=== PATIENT | female | born 1930 | race Caucasian/White ===

== ENCOUNTER 2016-10-26 07:57 | Inpatient (IN) | payer MEDICARE, OTHER ==
[~2016-10-26] VITALS: Ht 157.5 cm; Wt 72.0 kg
[2016-10-26] VITALS (27 sets, daily range): BP systolic 98–158; BP diastolic 47–71; PULSE 55–78; RESP 17–26; TEMP 98.7; Ht 157.5 cm; Wt 72.0 kg
[~2016-10-26 07:57] MED LIST: ACETAMINOPHEN; AMLO1TAB; ASPI-727; AZIL1TAB2 PO; COLC0.6T6 PO; DIGO0.25 PO; FER325 PO; GLIM4TAB PO; METF500T4 PO; METO-53; PANT40TA4; RIVA20TA PO; SMV40T; SMV40T PO; [UNRECOGNIZED DRUG - OTHER] PO; [UNRECOGNIZED DRUG - REMARK]; colcrys; vit d
[2016-10-26] MEDS ORDERED: SOD CHLORIDE 0.9% 1,000 ML IV STA (08:08)
[2016-10-26] MEDS ORDERED: IPRATROPIUM (NEB) 0.5 MG/2.5 ML AMP INH STA (08:12)
[2016-10-26] MEDS ORDERED: LEVALBUTEROL (NEB) 1.25 MG/0.5 ML AMP INH STA (08:12)
--- NOTE | 2016-10-26 08:20 | ERA ---
ER Documentation Chief Complaint Date/Time DATE: 10/26/16 TIME: 08:16 Chief Complaint BIB RA ALOC PT NON VERBAL HPI This is an 85-year-old female that was brought into the emergency department by EMS after her caregiver phoned 911. Story was limited as the caregiver did not speak Moh[place]. The patient is mumbling incomprehensible sounds and does not provide any history. EMS indicated that the patient appeared to be lying in her bed, diaphoretic, and respiratory distress. There is no signs of trauma or drug paraphernalia. The patient is a known diabetic and her blood glucose was normal according to EMS. The patient appeared to have some difficulty in breathing according to EMS but did not require supplemental oxygen in route to [facility]. The daughter had arrived shortly after the patient's arrival and indicated that the patient has a history of [id number] diabetes mellitus as well a triple bypass performed in 1999. The patient also has a cardiac stent that was placed in May 2015 and the RCA performed by Dr. Calabrese. The the daughter also indicates the patient speaks Singaporean and does not have a history of dementia. She is able to ambulate with a walker. She indicates that over the past several days the patient has not had any complaints such as chest pain shortness of breath or difficulty in breathing she also indicates she has not had a productive or nonproductive cough. The daughter also indicates she has not had a recent fever or hospitalization ROS All systems reviewed and are negative except as per history of present illness. Medications Home Meds Reported Medications Ergocalciferol (Vitamin D2) (VITAMIN D2) 50,000 Unit Capsule, 73088 UNIT PO WEEKLY, CAP 10/26/16 Metoprolol Tartrate* (Lopressor*) 50 Mg Tab, 50 MG PO BID, #60 TAB 10/26/16 Glimepiride* (Glimepiride*) 4 Mg Tablet, 4 MG PO BID WITH MEALS, TAB 10/26/16 Docusate Sodium* (Colace*) 250 Mg Capsule, 250 MG PO BID, #60 CAP 10/26/16 Sennosides* (Senna Lax*) 8.6 Mg Tablet, 1 TAB PO DAILY, TAB 10/26/16 Digoxin* (Digox*) 125 Mcg Tablet, 0.125 MG PO DAILY, TAB 10/26/16 Memantine* (Namenda* XR) 28 Mg Cap.spr.24, 28 MG PO DAILY, #30 TAB 10/26/16 Metformin* (Glucophage*) 500 Mg Tab, 500 MG PO DAILY, #30 TAB 10/26/16 Icosapent Ethyl (VASCEPA) 1 Gm Capsule, 1 GM PO BID, CAP 10/26/16 Acetaminophen* (Acephen*) 650 Mg Supp, 650 MG SC DAILY Y for PAIN AND OR ELEVATED TEMP, SUPP 10/26/16 Clopidogrel Bisulfate (Clopidogrel) 75 Mg Tablet, 75 MG PO DAILY, #30 TAB 10/26/16 Aspirin* (Aspirin* Chew) 81 Mg Tab.chew, 81 MG PO DAILY, TAB.CHEW 10/26/16 Colchicine* (Colcrys*) 0.6 Mg Tablet, 0.6 MG PO BID, TAB 10/26/16 Pantoprazole* (Pantoprazole*) 40 Mg Tablet.dr, 40 MG PO DAILY, TAB 10/26/16 Amlodipine Besylate* (Norvasc*) 5 Mg Tablet, 5 MG PO DAILY, TAB 10/26/16 Colchicine* (Colcrys*) 0.6 Mg Tablet, 0.6 MG PO DAILY 08/30/13 Azilsartan-Chlorthalidone (Edarbyclor) 1 Each Tablet, 1 EACH PO DAILY 08/30/13 Metformin* (Glucophage*) 500 Mg Tab, 500 MG PO BID 08/30/13 Rivaroxaban* (Xarelto*) 20 Mg Tablet, 20 MG PO DAILY 08/30/13 Ferrous Sulfate* (Ferrous Sulfate*) 325 Mg Tabec, 325 MG PO BID 08/30/13 [sulfametho] No Conflict Check, 160 MG PO BID 08/30/13 [vit d] No Conflict Check, 34310 UNIT each week 08/30/13 Glimepiride* (Glimepiride*) 4 Mg Tablet, 4 MG PO BID 08/30/13 Simvastatin (Simvastatin) 40 Mg Tablet, PO 02/20/13 Metoprolol (Lopressor) 50 Mg Tablet, bid, 0 Refills 02/20/13 Digoxin (Lanoxin) 0.25 Mg/5 Ml Solution, PO 02/20/13 [gas reliever] No Conflict Check 11/16/11 Pantoprazole* (Pantoprazole*) 40 Mg Tablet. 11/16/11 [colcrys] No Conflict Check 11/16/11 Aspirin (Adult Aspirin) 81 Mg Tab.chew 11/16/11 Simvastatin (Simvastatin) 40 Mg Tablet 11/16/11 [acetanminophen ext] No Conflict Check 11/16/11 Plskhitfua-Fvvfkwtwg-WGZE (Exforge HCT) 1 Each Tablet 11/16/11 Allergies Allergies: Coded Allergies: digoxin (Verified Allergy, Intermediate, 08/30/13) No Known Allergies (Verified Allergy, Unknown, 10/26/16) celecoxib (Verified Allergy, Unknown, 02/20/13) triamcinolone acetonide (Verified Allergy, Unknown, 02/20/13) Physical Exam Vitals Vital Signs Date Time Temp Pulse Resp B/P Pulse Ox O2 Delivery O2 Flow Rate FiO2 10/26/16 11:30 100.2 60 20 128/77 100 10/26/16 10:49 99.2 10/26/16 09:47 101.0 76 20 130/67 100 BIPAP 10/26/16 09:00 90 20 10/26/16 09:00 96 100 100 10/26/16 08:50 101.4 106 22 118/75 100 BIPAP 10/26/16 08:09 97.8 112 15 118/75 76 Physical Exam Constitutional:Well-developed. Well-nourished. In severe respiratory distress peer HEENT:Normocephalic. Atraumatic.Pupils were equal round reactive to light. Moist mucous membranes.No tonsillar exudates. Conjunctival pallor Neck: No nuchal rigidity. No lymphadenopathy. No posterior cervical spine tenderness or step-offs. Respiratory: Patient was using accessory muscles of respiration. Rhonchi heard bilaterally. No wheezing on end auscultation. Nonverbal. Cardiovascular: Regular rate regular rhythm.No murmurs. No rubs were appreciated.S1, S2 normal. Distal pulses are palpable 2+ bilaterally. GI: Abdomen was soft. Nontender. Non Distended. No pulsatile abdominal masses or bruits. No rebound. No guarding. Bowel sounds were present and normal. Muscle skeletal: Full range of motion of both the upper and lower extremities bilaterally.Normal muscle tone.No assymetrical calf tenderness or swelling. 1+ pitting edema the bilateral lower extremities. Skin: No petechia, no purpura. No lesions on the palms or the soles of the feet. No maculopapular rash. NEURO: Patient was alert and awake and was mumbling incomprehensible sounds. It is unknown what language the patient speaks but she would respond to Mohawk and follows simple verbal commands such as opening her mouth, raising her eyebrows, squeezing my fingers bilaterally.No facial droop. Gait not observed.Speech had regular rate and rhythm. No focal neurological deficits. Result Diagram: 10/26/16 0812 10/26/16 0812 Results 24 hrs Laboratory Tests Test 10/26/16 08:08 10/26/16 08:12 10/26/16 09:30 10/26/16 12:00 Arterial Blood HCO3 21.2mmol/L Arterial Blood Base Excess -3.7mmol/L Arterial Blood Oxygen Saturation 99.3mmHG [place] Test ACCEPTAB Arterial Blood Gas Puncture Site Left Radial Arterial Blood Carboxyhemoglobin 0.3% Arterial Blood Date Drawn 10/26/2016 12:16:15 PM Arterial Blood Methemoglobin 0.1% Arterial Blood pCO2 (Temp correct) 37.8mmhg Arterial Blood pH (Temp corrected) 7.367 Arterial Blood pO2 (Temp corrected) 306.5mmHG Blood Gas A-a O2 Differential 368.7mmHg Blood Gas Actual Respiration Rate 19 Blood Gas IPAP/EPAP Ratio 15/5 Blood Gas Modality MASK - BIPAP Blood Gas Notified Time 10/26/2016 12:22:45 PM Blood Gas Notified Whom MDA Blood Gas Pressure Support 10 Blood Gas Respiration Rate 16.0 Blood Gas Specimen Source Blood arterial Blood Gas Temperature 37.0C FiO2 100.0% Oxyhemoglobin Percent 98.9% Total Hemoglobin 11.9g/dl Activated Partial Thromboplast Time 25.8Sec Alanine Aminotransferase (ALT/SGPT) 22IU/L Albumin 4.1g/dl Albumin/Globulin Ratio 1.10 Alkaline Phosphatase 83IU/L Anion Gap 24 Aspartate Amino Transf (AST/SGOT) 23IU/L B-Type Natriuretic Peptide 3030PG/ML Band Neutrophils % 8.0% Basophils # 10^3/ul Basophils % % Blood Urea Nitrogen 21mg/dl Calcium Level 8.6mg/dl Carbon Dioxide Level 18mmol/L Chloride Level 103mmol/L Creatine Kinase 35IU/L Creatine Kinase Index 1.5 Creatinine 0.90mg/dl Creatinine Kinase MB (Mass) 0.51ng/ml Differential Comment MANUAL DIFF Direct Bilirubin 0.00mg/dl Eosinophils # 10^3/ul Eosinophils % % Free Thyroxine Index 2.09ug/ml Globulin 3.70g/dl Glucose Level 351mg/dl Hematocrit 34.9% Hemoglobin 11.8g/dl INR International Normalized Ratio 1.08 Indirect Bilirubin 0.3mg/dl Lymphocytes # 3.410^3/ul Lymphocytes % 12.0% Mean Corpuscular Hemoglobin 29.4pg Mean Corpuscular Hemoglobin Concent 33.6g/dl Mean Corpuscular Volume 87.4fl Mean Platelet Volume 8.0fl Monocytes # 0.910^3/ul Monocytes % 3.0% Neutrophils # 22.110^3/ul Neutrophils % 77.0% Nucleated Red Blood Cells # 10^3/ul Nucleated Red Blood Cells % /100WBC Platelet Count 53830^3/UL Potassium Level 4.7mmol/L Prothrombin Time 14.0Sec Prothrombin Time Ratio 1.1 Red Blood Count 4.0010^6/ul Red Cell Distribution Width 14.1% Sodium Level 140mmol/L Thyroxine (T4) 6.4ug/dl Total Bilirubin 0.3mg/dl Total Protein 7.8g/dl Triiodothyronine (T3) Uptake 32.7% Troponin I 0.033ng/ml White Blood Count 28.710^3/ul Urine Bacteria RARE Urine Bilirubin NEGATIVE Urine Clarity CLEAR Urine Color LT. YELLOW Urine Epithelial Cells RARE Urine Glucose 0.25%% Urine Hemoglobin TRACE Urine Ketones NEGATIVE Urine Leukocyte Esterase NEGATIVE Urine Microscopic RBC 0-2/HPF Urine Microscopic WBC 0-2/HPF Urine Nitrite NEGATIVE Urine Specific [place] 1.015 Urine Total Protein TRACE Urine Urobilinogen 0.2 E.U./dL Urine pH 6.0 Lactic Acid Level 2.6mmol/L Current Medications Medications (Trade) Dose Ordered Sig/Enrique Route PRN Reason Start Time Stop Time Status Last Admin Dose Admin Sodium Chloride (NS) 1,000 ml @ 1,000 mls/hr Q1H STAT IV 10/26/16 08:08 10/26/16 09:07 DC 10/26/16 08:35 Levalbuterol (Xopenex Neb) 2.5 mg ONCE STAT INH 10/26/16 08:12 10/26/16 08:14 DC 10/26/16 09:00 Ipratropium Osborne 1 mg 1 mg ONCE STAT INH 10/26/16 08:12 10/26/16 08:14 DC 10/26/16 09:00 Vancomycin HCl 250 ml @ 125 mls/hr ONCE STAT IVPB 10/26/16 08:45 10/26/16 10:44 DC 10/26/16 09:43 Piperacillin Sod/ Tazobactam Sod (Zosyn 3.375gm/ 100 ml (Pmx)) 100 ml @ 200 mls/hr ONCE STAT IVPB 10/26/16 08:45 10/26/16 09:14 DC 10/26/16 09:03 Acetaminophen (Tylenol Supp) 650 mg STK-MED ONCE SC 10/26/16 08:55 10/26/16 08:56 DC Acetaminophen (Tylenol Supp) 650 mg ONCE ONCE SC 10/26/16 09:30 10/26/16 09:37 DC 10/26/16 09:38 Acetaminophen (Tylenol Supp) 650 mg ONCE ONCE SC 10/26/16 11:00 10/26/16 11:01 DC Enoxaparin Sodium (Lovenox) 30 mg ONCE ONCE SC 10/26/16 12:30 10/26/16 12:31 UNV Acetaminophen (Tylenol Supp) 650 mg DAILY PRN SC PAIN AND OR ELEVATED TEMP 10/26/16 12:00 UNV Aspirin (Aspirin) 81 mg DAILY PO 10/27/16 09:00 UNV Clopidogrel Bisulfate (plaVIX) 75 mg DAILY PO 10/27/16 09:00 UNV Digoxin (Digoxin) 0.125 mg DAILY PO 10/27/16 09:00 UNV Docusate Sodium (Colace) 100 mg BID PRN PO CONSTIPATION 10/26/16 12:00 UNV Ferrous Sulfate (Ferrous Sulfate (Ec)) 325 mg BID PO 10/26/16 21:00 UNV Metoprolol Tartrate (Lopressor) 50 mg BID PO 10/26/16 21:00 UNV Rivaroxaban (Xarelto) 20 mg DAILY PO 10/27/16 09:00 UNV Senna (Senokot) 1 tab DAILY PO 10/27/16 09:00 UNV Ondansetron HCl (Zofran Inj) 4 mg Q6H PRN IV NAUSEA AND/OR VOMITING 10/26/16 12:00 UNV Albuterol (Proventil 0.5% (Neb)) 2.5 mg Q4H RESP THERAPY NEB 10/26/16 13:00 UNV Ipratropium [place] (Atrovent 0.02% (Neb)) 0.5 mg Q4H RESP THERAPY NEB 10/26/16 13:00 UNV Methylprednisolone Sodium Succinate (Solu-Medrol) 60 mg Q8 IV 10/26/16 14:00 UNV Nitroglycerin (Nitroglycerin (Sl Tab) 0.4 Mg) 1 tab Q5M PRN SL CHEST PAIN 10/26/16 12:00 UNV Acetaminophen (Tylenol Tab) 650 mg Q6H PRN PO PAIN LEVEL 1-3 OR FEVER 10/26/16 12:00 UNV Acetaminophen (Tylenol Supp) 650 mg Q4H PRN SC PAIN LEVEL 1-3 OR FEVER 10/26/16 12:00 UNV Morphine Sulfate (morphine) 1 mg Q4H PRN IV PAIN LEVEL 7-10 10/26/16 12:00 UNV Lorazepam (Ativan) 1 mg Q2H PRN IV ANXIETY 10/26/16 12:00 UNV Pantoprazole 40 mg 40 mg DAILY@06 IV 10/27/16 06:00 UNV Cefepime HCl (Maxipime 1gm/50 ml (Pmx)) 50 ml @ 100 mls/hr Q12 IVPB 10/26/16 21:00 UNV Vancomycin HCl (Vanco Iv Per Pharmacy) VANCOMYCIN PER PHARMACY PER PROTOCOL XX 10/26/16 12:00 UNV Insulin Aspart (Novolog Insulin Pen) NOVOLOG *MILD* ALGORITHM WITH MEALS BEDTIME SC 10/26/16 18:00 UNV Miscellaneous Information (* Miscellaneous Pharmacy Order) HYPOGLYCEMIA PROTOCOL w... ONCE ONCE XX 10/26/16 12:30 10/26/16 12:31 UNV Miscellaneous Information (* Miscellaneous Pharmacy Order) Discontinue Glyburide, Glipizide,... ONCE ONCE XX 10/26/16 12:30 10/26/16 12:31 UNV Miscellaneous Information (* Miscellaneous Pharmacy Order) Discontinue all previ... ONCE ONCE XX 10/26/16 12:30 10/26/16 12:31 UNV Insulin Glargine (Lantus) 10 unit QPM SC 10/26/16 21:00 UNV Procedures/MDM The patient presented to the emergency department with an acute and persistent change in their mental status. The differential diagnosis is diverse however reversible causes such as hypoglycemia, opiate overdose, thiamine deficiency were immediately considered. The patient was placed on a bus driver/monitor, continuous pulse oximetry and IV access was established. The patients airway was secure however hypoxic events such as anemia, shock, or severe pulmonary disease were all considered as etiologies in this patients presentation. Circulation assessed with good cap refill and did not require fluids or pressure support. Finger stick for rapid glucose determined to be normal. The patient appeared to be in significant respiratory distress. She has a previous sternotomy scar and it was concerned that the patient could be in congestive heart failure exacerbation. She was hypoxic satting at 79% on room air. Therefore the patient was placed on a nonrebreather and her pulse ox improved to 82% but given that she was still using accessory muscles of respiration with rhonchi she was placed on noninvasive mechanical ventilation with a BiPAP. She was given nebulizer treatments of Xopenex and albuterol as the patient was tachycardic. The patient was febrile and was given rectal acetaminophen. The patient was given a bedside swallow test which he had failed. The chest radiograph is reviewed by myself and showed significant pulmonary vascular congestion and given that the patient had evidence of sepsis I could not rule out an underlying infiltrate and the patient was treated for possible aspiration pneumonia. She was given vancomycin and Zosyn after blood cultures and urine culture was taken Patient's infectious symptoms have not stabilized and the patient is at risk of rapid decompensation. The patient will be admitted for careful hydration, antibiotic therapy, and infectious source control. Severe Sepsis Assessment: Infectious Source: Aspiration pneumonia End organ damage indicated by: Lactate > 2.0 mmol/L Acute Resp Failure (sat < 92% w/o oxygen) Severe Sepsis Managment: Blood Cultures X 2 before broad spectrum antibiotics initiated within 3 hours of recognition. 30 ml/kg NS bolus Not Completed to prevent fluid overload the patient had congestive heart failure Initial Lactate: 2.6 Repeat Lactate pending Critical Care: Time: 55 minutes Treatments/Evaluations: Close monitoring and treatment of unstable vital signs, cardiorespiratory, and neurologic status, while maintaining tight balance of fluid, respiratory, and cardiac interventions. 12 Lead EKG tracing ordered and reviewed by myself showed: Normal sinus rhythm of 99 bpm and no arrhythmia. SC interval normal. QRS duration normal. No ST segment elevation ST segment depression in the lateral leads V4 V5 V6. Patient will be admitted in serious condition to the hospitalist Dr. Oliveros. The patient did have criteria for severe sepsis given that she was febrile tachypneic hypoxic with leukocytosis and was in respiratory failure requiring mechanical ventilation. Departure Diagnosis: Primary Impression: CHF exacerbation Additional Impressions: Aspiration pneumonia Hyperglycemia without ketosis Severe sepsis Condition: Serious EAMON NUNEZ Oct 26, 2016 08:20
[2016-10-26 08:33] LABS: INR 1.08; PT RATIO 1.1
[2016-10-26 08:34] LABS: ALBUMIN 4.1 g/dl (3.3-4.9); PARTIAL THROMBOPLASTIN TIME 25.8 Sec (25.0-35.0)
[2016-10-26 08:35] LABS: POTASSIUM 4.7 mmol/L (3.5-5.1)
[2016-10-26 08:37] LABS: ALBUMIN/GLOBULIN RATIO 1.1; BILIRUBIN,INDIRECT 0.3 mg/dl (0-1.1); BILIRUBIN,TOTAL 0.3 mg/dl (0.2-1.3); CREATININE 0.9 mg/dl (0.44-1.00); TOTAL PROTEIN 7.8 g/dl (6.1-8.1)
[2016-10-26 08:38] LABS: CALCIUM 8.6 mg/dl (8.4-10.2)
[2016-10-26] MEDS ORDERED: VANCOMYCIN 1 GM (PMX) 250 ML IVPB STA (08:45)
[2016-10-26] MEDS ORDERED: PIPER-TAZO 3.375 GM IV (PMX) 100 ML IVPB STA (08:45)
[2016-10-26 08:47] LABS: CK-MB 0.51 ng/ml (0.0-2.4)
[2016-10-26 08:51] LABS: TROPONIN-I 0.033 ng/ml (0.00-0.12)
[2016-10-26 08:55] LABS: HEMATOCRIT 34.9 % (37.0-47.0); HEMOGLOBIN 11.8 g/dl (12.0-16.0); MEAN CORPUSCULAR HEMOGLOBIN 29.4 pg (29.0-33.0); MEAN CORPUSCULAR HGB CONC 33.6 g/dl (32.0-37.0); MEAN CORPUSCULAR VOLUME 87.4 fl (82.0-101.0); PLATELET COUNT 280 10^3/UL (140-440); RED CELL DISTRIBUTION WIDTH 14.1 % (11.5-14.5); T3 UPTAKE 32.7 % (23.5-40.5); UNCORRECTED WBC 28.7 10^3/ul (4.8-10.8); WHITE BLOOD COUNT 28.7 10^3/ul (4.8-10.8)
[2016-10-26] MEDS ORDERED: ACETAMINOPHEN 650 MG SUPP PR ONE ×3 (08:55→11:00)
[2016-10-26 08:58] LABS: CONDITION 1; LH ANALYZER COMMENTS 1; SUSPECT 1
--- NOTE | 2016-10-26 08:58 | RADRPT ---
PROCEDURE: XR Chest. CLINICAL INDICATION: Encephalopathy. Altered mental status. TECHNIQUE: Single frontal chest x-ray. COMPARISON: None available. FINDINGS: There has been prior median sternotomy. The cardiomediastinal silhouette is enlarged. There is diff use bilateral alveolar and interstitial disease with dense parenchymal consolidation throughout the right lung and in the left mid and lower lung zones. There is no pneumothorax. There are no acute o sseous abnormalities. There are deformities of multiple left ribs. IMPRESSION: 1. Cardiomegaly with diffuse bilateral alveolar and interstitial disease with dense superimposed pa renchymal opacification throughout the right lung of the left mid and lower lung zones. Differential considerations include severe pulmonary edema and multifocal pneumonia. RPTAT: GG .Celio Morales MD, Date Time Electronically viewed and signed by .Celio Morales MD, on 10/26/2016 08:58 .P/
[2016-10-26] MEDS ORDERED: AMLO5TAB4 PO (09:29)
[2016-10-26] MEDS ORDERED: PANT40TA4 PO (09:30)
[2016-10-26] MEDS ORDERED: COLC0.6T6 PO (09:31)
[2016-10-26] MEDS ORDERED: ASPI81TA3 PO (09:31)
[2016-10-26] MEDS ORDERED: TYL650R PR (09:32)
[2016-10-26] MEDS ORDERED: CLOP75TA27 PO (09:32)
[2016-10-26] MEDS ORDERED: METF500T4 PO (09:33)
[2016-10-26] MEDS ORDERED: ICOS1CAP PO (09:33)
[2016-10-26] MEDS ORDERED: DIGO125T19 PO (09:34)
[2016-10-26] MEDS ORDERED: MEMA28CA PO (09:34)
[2016-10-26] MEDS ORDERED: SENN-53 PO (09:35)
[2016-10-26] MEDS ORDERED: DOCU250C58 PO (09:36)
[2016-10-26] MEDS ORDERED: METO-429 PO (09:37)
[2016-10-26] MEDS ORDERED: GLIM4TAB PO (09:37)
[2016-10-26 09:38] LABS: LYMPHOCYTES # 3.4 10^3/ul (0.8-2.9); MONOCYTE # 0.9 10^3/ul (0.3-0.9); NEUTROPHIL # 22.1 10^3/ul (1.6-7.5)
[2016-10-26] MEDS ORDERED: ERGO500037 PO (09:38)
[2016-10-26 09:46] LABS: ADD UMIC YES; URINE BILIRUBIN (Dip) NEGATIVE (NEGATIVE); URINE BLOOD (Dip) TRACE (NEGATIVE); URINE COLOR LT. YELLOW (YELLOW); URINE KETONES (Dip) NEGATIVE (NEGATIVE); URINE LEUKOCYTE ESTERASE (Dip) NEGATIVE (NEGATIVE); URINE NITRITE (Dip) NEGATIVE (NEGATIVE); URINE TOTAL PROTEIN (Dip) TRACE (NEGATIVE); URINE UROBILINOGEN (Dip) 0.2 E.U./dL (0.1-1.0)
[2016-10-26 10:03] LABS: BACTERIA,URINE RARE; URINE RBCS 0-2 /HPF (0)
[2016-10-26] MEDS ORDERED: DOCUSATE SODIUM 250 MG CAP PO PRN (12:00)
[2016-10-26] MEDS ORDERED: ONDANSETRON 4 MG INJ IV PRN (12:00)
[2016-10-26] MEDS ORDERED: ACETAMINOPHEN 650 MG SUPP PR PRN ×2 (12:00)
[2016-10-26] MEDS ORDERED: NITROGLYCERIN (SL) 0.4 MG TAB SL PRN (12:00)
[2016-10-26] MEDS ORDERED: morphine 2 MG INJ IV PRN (12:00)
[2016-10-26] MEDS ORDERED: VANCOMYCIN IV PER PHARMACY XX SCH (12:00)
--- NOTE | 2016-10-26 12:17 | CONS ---
Date/Time of Note Date/Time of Note DATE: 10/26/16 TIME: 12:10 Assessment/Plan Assessment/Plan Additional Assessment/Plan Assessment and recommendation; next 1. Patient admitted with diffuse bilateral pneumonia I doubt there is any component of congestive heart failure. He does have significant leukocytosis. 2. History of coronary artery bypass surgery 16 years ago with negative troponin. Next 3. History of diabetes, hypertension, hyperlipidemia. 4. I did have a discussion of the family regarding CODE STATUS and according to the patient's daughter the patient did not want to be intubated therefore is a DNR. Continue current BiPAP settings, continue current broad-spectrum antibiotics. Obtain follow-up chest x-ray tomorrow morning. Lovenox for DVT prophylaxis. Also on Solu-Medrol and I would recommend continuation of the same. Prognosis is guarded. Consultation Date/Type/Reason Admit Date/Time Date of Consultation: Oct 26, 2016 Type of Consultation: pulmonary/ critical care Reason for Consultation Patient admitted to ER brought in by EMS with complaints of shortness of breath/ respiratory failure. The patient's daughter the patient was doing fine until early this morning when she she attended to her mother was found to be severely short of breath no history of any fever chills chest pain wheezing any nausea vomiting upon evaluation in ER chest x-ray was done which is showing diffuse bilateral infiltrates consistent with bilateral severe pneumonia and currently maintained on BiPAP according to her she is feeling better. Past Medical History Past medical history 1. History of coronary artery disease with coronary artery bypass surgery in 1999 according to the patient's daughter for bypasses were done next 2. Hypertension 3. Diabetes next 4. Hyperlipidemia 5. 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 6. According to the patient's daughter no history of any congestive heart failure/pneumonia/respiratory failure in the past. 7. History of 1. Medications; were reviewed. Social history no history of any smoking alcohol or drug abuse. Family history; she is a has 2 children. Occupational history; patient has been a housewife. Next Review of systems; limited review of systems will be obtained patient is on BiPAP however she sees her shortness of breath is improving but denies any chest pain nausea, vomiting, fever, chills. Has any sputum production, hemoptysis. Social History Smoking Status: Former smoker Exam/Review of Systems Vital Signs Vitals Vital Signs Date Time Temp Pulse Resp B/P Pulse Ox O2 Delivery O2 Flow Rate FiO2 10/26/16 10:49 99.2 10/26/16 09:47 76 20 130/67 100 BIPAP 10/26/16 09:00 100 Exam HEENT examination; supple neck, no JVD. Patient does not multiple carious teeth. Bilateral intraocular lens implants. No neck masses no thyromegaly. Currently on BiPAP. Chest examination; diminished breath sounds throughout the bilateral crackles. S1-S2 audible no murmurs regular rhythm. There is a well-healed sternal scar. Abdomen examination; soft, nondistended, no organomegaly. Bowel sounds are audible. Extremity examination; no peripheral edema. Pulses 1+ bilaterally. FINAL TOUCH UP PAINTER examination; patient is on BiPAP cranial nerves could not be completely evaluated however there is no obvious focal motor deficit. Results Result Diagram: 10/26/16 0812 10/26/16 0812 Results 24 hrs Laboratory Tests Test 10/26/16 08:12 10/26/16 09:30 Activated Partial Thromboplast Time 25.8 Alanine Aminotransferase (ALT/SGPT) 22 Albumin 4.1 Albumin/Globulin Ratio 1.10 Alkaline Phosphatase 83 Anion Gap 24 H Aspartate Amino Transf (AST/SGOT) 23 B-Type Natriuretic Peptide 3030 H Band Neutrophils % 8.0 H Basophils # Basophils % Blood Urea Nitrogen 21 H Calcium Level 8.6 Carbon Dioxide Level 18 L Chloride Level 103 Creatine Kinase 35 Creatine Kinase Index 1.5 Creatinine 0.90 Creatinine Kinase MB (Mass) 0.51 Differential Comment MANUAL DIFF Direct Bilirubin 0.00 Eosinophils # Eosinophils % Free Thyroxine Index 2.09 Globulin 3.70 H Glucose Level 351 H Hematocrit 34.9 L Hemoglobin 11.8 L INR International Normalized Ratio 1.08 Indirect Bilirubin 0.3 Lymphocytes # 3.4 H Lymphocytes % 12.0 L Mean Corpuscular Hemoglobin 29.4 Mean Corpuscular Hemoglobin Concent 33.6 Mean Corpuscular Volume 87.4 Mean Platelet Volume 8.0 Monocytes # 0.9 Monocytes % 3.0 Neutrophils # 22.1 H Neutrophils % 77.0 Nucleated Red Blood Cells # Nucleated Red Blood Cells % Platelet Count 280 Potassium Level 4.7 Prothrombin Time 14.0 Prothrombin Time Ratio 1.1 Red Blood Count 4.00 L Red Cell Distribution Width 14.1 Sodium Level 140 Thyroxine (T4) 6.4 Total Bilirubin 0.3 Total Protein 7.8 Triiodothyronine (T3) Uptake 32.7 Troponin I 0.033 White Blood Count 28.7 H Urine Bacteria RARE Urine Bilirubin NEGATIVE Urine Clarity CLEAR Urine Color LT. YELLOW Urine Epithelial Cells RARE Urine Glucose 0.25% H Urine Hemoglobin TRACE Urine Ketones NEGATIVE Urine Leukocyte Esterase NEGATIVE Urine Microscopic RBC 0-2 Urine Microscopic WBC 0-2 Urine Nitrite NEGATIVE Urine Specific [place] 1.015 Urine Total Protein TRACE Urine Urobilinogen 0.2 E.U./dL Urine pH 6.0 GHULAM CARRASCO Oct 26, 2016 12:17
[2016-10-26 12:22] LABS: AADO2 Arterial 368.7 mmHg (7.0-24.0); Allen Test ACCEPTAB; Arterial Base Excess -3.7 mmol/L (-3.0-3); Arterial COHb 0.3 % (0.0-3.0); Arterial Fraction of Oxyhgb 98.9 % (93.0-99.0); Arterial HCO3 21.2 mmol/L (22.0-26.0); Arterial MetHb 0.1 % (0.0-1.5); Arterial Total Hemglobin 11.9 g/dl (12.0-18.0); Blood Gas IEPAP 15/5; Blood Gas PS 10; MODE MASK - BIPAP
[2016-10-26] MEDS ORDERED: ENOXAPARIN 30 MG/0.3 ML SYG SC ONE (12:30)
[2016-10-26] MEDS ORDERED: GLUCAGON 1 MG INJ IM PRN (15:30)
[2016-10-26] MEDS ORDERED: GLUCOSE GEL 15 GRAM TUBE BUCCAL PRN (15:30)
[2016-10-26] MEDS ORDERED: GLUCOSE GEL 15 GRAM TUBE PO PRN ×2 (15:30)
[2016-10-26] MEDS ORDERED: DEXTROSE 50% 50 ML SYRINGE IV PRN ×2 (15:30)
[2016-10-26 15:37] LABS: CK-MB 33.7 ng/ml (0.0-2.4)
[2016-10-26 15:49] LABS: TROPONIN-I 24.4 ng/ml (0.00-0.12)
[2016-10-26] MEDS ORDERED: LIDOCAINE 1% (MDV) 20 ML INJ SC ONE (16:30)
[2016-10-26] MEDS ORDERED: HEPARIN 1000 UNITS/ML 10 ML INJ IV ONE (16:30)
[2016-10-26] MEDS ORDERED: HEPARIN 1000 UNITS/ML 10 ML INJ IV PRN (16:30)
[2016-10-26 17:01] LABS: BASOPHILS % 0.1 % (0.0-2.0); HEMATOCRIT 32.1 % (37.0-47.0); LYMPHOCYTES # 1.1 10^3/ul (0.8-2.9); LYMPHOCYTES % 4.6 % (15.0-51.0); MEAN CORPUSCULAR HEMOGLOBIN 29.8 pg (29.0-33.0); MEAN CORPUSCULAR HGB CONC 34.4 g/dl (32.0-37.0); MEAN CORPUSCULAR VOLUME 86.8 fl (82.0-101.0); MEAN PLATELET VOLUME 7.4 fl (7.4-10.4); MONOCYTES % 4.4 % (0.0-11.0); NEUTROPHIL # 20.8 10^3/ul (1.6-7.5); NEUTROPHILS % 90.9 % (39.0-77.0); PLATELET COUNT 197 10^3/UL (140-440); RED BLOOD COUNT 3.69 10^6/ul (4.20-5.40); RED CELL DISTRIBUTION WIDTH 13.8 % (11.5-14.5); UNCORRECTED WBC 22.9 10^3/ul (4.8-10.8); WHITE BLOOD COUNT 22.9 10^3/ul (4.8-10.8)
[2016-10-26 17:02] LABS: CONDITION 1; LH ANALYZER COMMENTS 1
[2016-10-26] MEDS: CLOPIDOGREL 75 MG TAB PO SCH (17:02)
[2016-10-26 17:03] LABS: INR 1.07; PROTIME 13.9 Sec (12.2-14.2); PT RATIO 1.1
[2016-10-26] MEDS: DIGOXIN 0.125 MG TAB PO SCH (17:03)
[2016-10-26 17:04] LABS: PARTIAL THROMBOPLASTIN TIME 28.1 Sec (25.0-35.0)
--- NOTE | 2016-10-26 17:43 | HP ---
DATE OF ADMISSION: 10/26/2016 CONSULTANTS: Costume Specialist. Stretcher Leveler Operator Helper. CHIEF COMPLAINT: Shortness of breath. HISTORY OF PRESENT ILLNESS: This is an 86-year-old female with past medical history of coronary art pamella disease status post quadruple bypass and also in 2016, patient had a left heart catheterization, status post PCI, hypertension, vitamin D deficient, diabetes mellitus, GERD, dyslipidemia, chronic constipation, anemia, arrhythmia, who resides at home and has 24-hour nurse, was found to have short ness of breath and was brought into the emergency room via EMS where she was found to be hypoxic wit h oxygen saturation of 76%. Patient was placed on BiPAP. The patient was also found to be febrile with temperature 100.4. WBC was 28.7. Chest x-ray showed multifocal pneumonia, bilateral alveolar and interstitial disease. Patient was started on normal saline, Zosyn, vancomycin, and Tylenol in t he course of the emergency room. Pulmonology and cardiology were consulted. As per patient's daugh ter, patient has had a history of coronary artery disease and bypass and PCI, and she also has valvu lar stenosis, which she has refused surgical intervention about a year ago. This morning, patient's first troponin was 0.033 and the second troponin was 24.40. Cardiology has been notified regarding this matter. The patient's lactic acid was found to be 2.6, glucose of 351. At this time, the pat ient continues to be on BiPAP. She is arousable. She is able to follow simple commands. PAST MEDICAL AND SURGICAL HISTORY: As above per HPI. MEDICATIONS: 1. Tylenol. 2. Amlodipine. 3. Aspirin. 4. . 5. Plavix. 6. Colchicine. 7. Digoxin. 8. Colace. 9. Vitamin D. 10. Ferrous sulfate. 11. Glyburide. 12. . 13. Namenda. 14. Glucophage. 15. Lopressor. 16. Protonix. 17. Xarelto. 18. Senna 19. Simvastatin. ALLERGIES: 1. Digoxin. 2. Celecoxib. 3. Triamcinolone. SOCIAL HISTORY: Negative x3 for smoking, alcohol, illicit drugs. Lives at home. She has a full ca retaker. FAMILY HISTORY: Noncontributory secondary to advanced age. REVIEW OF SYSTEMS: As above per HPI. Otherwise, 12 review of systems was found to be negative. PHYSICAL EXAMINATION: VITAL SIGNS: Temperature at this time 98.7, pulse 58, respirations 17, blood pressure 129/49, satur ation 100% on BiPAP. GENERAL APPEARANCE: The patient is lying in bed, not agitated, on BiPAP, using accessory muscle for breathing. EYES AND ENT: Conjunctivae and lids are normal. Pupils are normal. Extraocular normal. Hearing g rossly normal. Lips are normal. Oral mucosa is dry. NECK: Supple. Trachea is midline. No lymphadenopathy, no JVD. LUNGS: Decreased breath sounds bilateral lower lung field. Positive for crackles and rales. No wh eezing. CARDIOVASCULAR: Normal S1, S2. Positive murmur at the apex. Positive 1 edema bilateral lower extr emities. ABDOMEN: Soft, nontender, not distended. Bowel sounds present. EXTREMITIES: Upper and lower extremities within normal limits. Positive +1 edema. Full range of m otion. NEUROLOGIC: Patient is awake, alert. LABORATORY WORK AND IMAGING: WBC 28.7, pulse 11.8, hematocrit 34.9, platelets 280, bands 8. Sodium 140, potassium 4.7, chloride 103, bicarbonate 18, BUN 21, creatinine 0.90, glucose 351. Lactic aci d 2.6. Troponin 0.033 and 24.4. BNP 3000. EKG showed sinus rhythm with normal QRS, no ST segment elevation, ST segment depressions in lateral leads V4 to V6. ASSESSMENT AND PLAN: 1. Acute respiratory failure, needed BiPAP. Pulmonology has been consulted. Has been placed on So [place]any-Medrol, breathing treatment. 2. Non-ST myocardial infarction. Cardiology has been consulted. Continue aspirin and Plavix. Pat ient has been placed on heparin drip. At this time, the patient's daughter will decide regarding to proceed with left heart catheterization procedure. Waiting for cardiology. 3. History of coronary artery disease status post quadruple bypass. Continue medical management. 4. Essential hypertension, well controlled on medical management at this time. 5. SIRS secondary to multifocal pneumonia, on cefepime and vancomycin. 6. Diabetes mellitus on insulin sliding scale and Lantus. 7. Multifocal pneumonia, on cefepime and vancomycin. Pulmonology and ID has been consulted. 8. For deep venous thrombosis prophylaxis, the patient is on Xarelto. 9. At this time, the patient has been placed on heparin drip. 10. For gastrointestinal prophylaxis, on proton pump inhibitor. 11. We will continue to monitor patient closely. Further recommendations, management, and treatmen t course as per patient's daughter recommendation and wishes. Patient is DNR. Will continue to mon itor patient closely for further recommendations, management, and treatment as per clinical course. Total amount of time was spent for evaluation of patient and admission workup greater than 60 minute s. Dictated By: AXEL CHERRY MD PN/NTS Conf#: [id number] DID#: [id number]
--- NOTE | 2016-10-26 17:46 | RADRPT ---
PROCEDURE: Ultrasound guidance for placement of needle in left upper extremity vein. CLINICAL INDICATION: Venous access. TECHNIQUE: Limited sonography of the left upper extremity was performed. Ultrasound images were recorded and s tored in the patient's medical record. COMPARISON: None. FINDINGS: The ultrasound images demonstrate a patent left upper extremity vein. The PICC line was inserted by the PICC line nurse. IMPRESSION: 1. Ultrasound guidance for a needle placement in a left upper extremity vein. 2. The left upper extremity vein is patent. RPTAT: QQ .Rene Jacob MD, MD Date Time Electronically viewed and signed by .Rene Jacob MD, MD on 10/26/2016 17:46 .R/
--- NOTE | 2016-10-26 17:51 | RADRPT ---
PROCEDURE: XR Chest. CLINICAL INDICATION: Check PICC line position. TECHNIQUE: Single frontal view. COMPARISON: 08/30/2013. FINDINGS: There is a left arm PICC line with the tip in the lower superior vena cava. There is bilateral air space disease consistent with pulmonary edema or pneumonia with right worse than left. The heart is enlarged. There is calcification in the aorta consistent with atherosclerosis. There are sternal wires and mediastinal clips. There is no pleural effusion or pneumothorax. There are old healed left upper rib fractures. IMPRESSION: 1. Satisfactory position of left arm PICC line. 2. Pulmonary edema or pneumonia with right worse than left. 3. Cardiomegaly and atherosclerosis. 4. Previous median sternotomy. 5. Old healed left upper rib fractures. RPTAT: QQ .Rene Jacob MD, Date Time Electronically viewed and signed by .Rene Jacob MD, on 10/26/2016 17:50 .R/
[2016-10-26] MEDS ORDERED: RIVAROXABAN 20 MG TABLET PO SCH (18:00)
[2016-10-26] MEDS: METHYLPREDNISOLONE 125 MG INJ IV SCH ×2 (18:24→22:47)
[2016-10-26] MEDS: INSULIN ASPART [NOVOLOG] 3 ML PEN SC SCH ×2 (18:36→22:47)
[2016-10-26] MEDS: ALBUTEROL 0.5% (NEB) 2.5 MG/0.5 ML AMP NEB SCH ×3 (19:29→20:44)
[2016-10-26] MEDS: IPRATROPIUM (NEB) 0.5 MG/2.5 ML AMP NEB SCH ×2 (19:30→20:44)
[2016-10-26 19:52] LABS: CK-MB 28.2 ng/ml (0.0-2.4)
[2016-10-26 19:56] LABS: TROPONIN-I 28.8 ng/ml (0.00-0.12)
[2016-10-26] MEDS: HEPARIN 25000 UNITS/250 ML 250 ML IV SCH (20:20)
[2016-10-26] MEDS: INSULIN GLARGINE [LANtus] 3 ML PEN SC SCH (22:46)
[2016-10-26] MEDS: CEFEPIME 1GM/50 ML (PMX) 50 ML IVPB SCH (22:47)
[2016-10-26] MEDS: FERROUS SULFATE (EC) 325 MG TAB PO SCH (22:52)
[2016-10-26] MEDS: METOPROLOL 50 MG TAB PO SCH (22:53)
--- NOTE | 2016-10-26 23:23 | CONS ---
Date/Time of Note Date/Time of Note DATE: 10/26/16 TIME: 23:04 Assessment/Plan Assessment/Plan Chief Complaint/Hosp Course Assessment: NSTEMI Coronary artery disease - history of CABG, history of PCI in 2016 (details unknown) Acute on chronic diastolic heart failure Severe aortic stenosis - refused valve replacement in the past Acute hypoxic respiratory failure - off BiPAP, on face mask Bilateral pneumonia Possible paroxysmal atrial fibrillation - currently sinus rhythm Hypertension Dyslipidemia Diabetes mellitus Recommendations: -serial troponins, obtain transthoracic echocardiogram -continue heparin drip -continue aspirin 81mg and clopidogrel 75mg daily -continue metoprolol 50mg BID -atorvastatin 80mg daily -gentle diuresis - Lasix 20mg IV x 1 -will need to discuss goals of care with family, coronary angiography when patient is more stable if they are agreeable -antibiotics per primary team Critical care time: >35 minutes at bedside Problems: Consultation Date/Type/Reason Admit Date/Time Type of Consultation: Cardiology Reason for Consultation elevated troponin Referring Provider: AXEL CHERRY MD Hx of Present Illness The patient is an 86 year-old female who presented with shortness of breath. She was found to have a fever, leukocytosis, hypoxic respiratory failure, and chest x-ray findings consistent with pneumonia. She was initially placed in BiPAP, but is now on face mask. Her initial troponin was 0.033, but have trended up to 28. She is currently lethargic and unable to provide much meaningful history (hearing impairment and language are additional barriers). She has coronary artery and is status post coronary artery bypass graft surgery and coronary stenting in 2016 (details unknown). She also has severe aortic stenosis and had refused valve replacement in the past. She has a possible history of atrial fibrillation (on digoxin and Xarelto as an outpatient. Unable to obtain review of systems due to patient's mental status. Past Medical History Coronary artery disease - history of CABG, history of PCI in 2016 (details unknown) Severe aortic stenosis Chronic diastolic heart failure Possible paroxysmal atrial fibrillation Hypertension Dyslipidemia Diabetes mellitus Past Surgical History Past Surgical Hx: coronary bypass surgery Family History Significant Family History: other (noncontributory given advanced age) Social History Alcohol Use: none Smoking Status: Never smoker Drug Use: none Exam/Review of Systems Vital Signs Vitals Vital Signs Date Time Temp Pulse Resp B/P Pulse Ox O2 Delivery O2 Flow Rate FiO2 10/26/16 20:47 74 20 99 Simple Mask 10.0 10/26/16 18:30 154/54 10/26/16 17:30 98.0 10/26/16 17:00 50 Exam Constitutional: No distress Psych: confusion Head: atraumatic, normocephalic Eyes: nl conjunctiva, nl lids ENMT: nl external ears & nose, nl nasal mucosa & septum Neck: non-tender, supple Respiratory: crackles/rales, diminished breath sounds Cardiovascular: regular rate and rhythm, systolic murmur Gastrointestinal: non-tender, soft Musculoskeletal: nl extremities to inspection Extremities: edema, No clubbing, No cyanosis Neurological: No nl mental status, No nl speech Results Result Diagram: 10/26/16 1635 10/26/16 0812 Results 24 hrs Laboratory Tests Test 10/26/16 08:08 10/26/16 08:12 10/26/16 09:30 10/26/16 12:00 Arterial Blood HCO3 21.2 L Arterial Blood Base Excess -3.7 L Arterial Blood Oxygen Saturation 99.3 [place] Test ACCEPTAB Arterial Blood Gas Puncture Site Left Radial Arterial Blood Carboxyhemoglobin 0.3 Arterial Blood Date Drawn 10/26/2016 12:16:15 PM Arterial Blood Methemoglobin 0.1 Arterial Blood pCO2 (Temp correct) 37.8 Arterial Blood pH (Temp corrected) 7.367 Arterial Blood pO2 (Temp corrected) 306.5 H Blood Gas A-a O2 Differential 368.7 H Blood Gas Actual Respiration Rate 19 Blood Gas IPAP/EPAP Ratio 15/5 Blood Gas Modality MASK - BIPAP Blood Gas Notified Time 10/26/2016 12:22:45 PM Blood Gas Notified Whom MDA Blood Gas Pressure Support 10 Blood Gas Respiration Rate 16.0 Blood Gas Specimen Source Blood arterial Blood Gas Temperature 37.0 FiO2 100.0 Oxyhemoglobin Percent 98.9 Total Hemoglobin 11.9 L Activated Partial Thromboplast Time 25.8 Alanine Aminotransferase (ALT/SGPT) 22 Albumin 4.1 Albumin/Globulin Ratio 1.10 Alkaline Phosphatase 83 Anion Gap 24 H Aspartate Amino Transf (AST/SGOT) 23 B-Type Natriuretic Peptide 3030 H Band Neutrophils % 8.0 H Basophils # Basophils % Blood Urea Nitrogen 21 H Calcium Level 8.6 Carbon Dioxide Level 18 L Chloride Level 103 Creatine Kinase 35 Creatine Kinase Index 1.5 Creatinine 0.90 Creatinine Kinase MB (Mass) 0.51 Differential Comment MANUAL DIFF Direct Bilirubin 0.00 Eosinophils # Eosinophils % Free Thyroxine Index 2.09 Globulin 3.70 H Glucose Level 351 H Hematocrit 34.9 L Hemoglobin 11.8 L INR International Normalized Ratio 1.08 Indirect Bilirubin 0.3 Lymphocytes # 3.4 H Lymphocytes % 12.0 L Mean Corpuscular Hemoglobin 29.4 Mean Corpuscular Hemoglobin Concent 33.6 Mean Corpuscular Volume 87.4 Mean Platelet Volume 8.0 Monocytes # 0.9 Monocytes % 3.0 Neutrophils # 22.1 H Neutrophils % 77.0 Nucleated Red Blood Cells # Nucleated Red Blood Cells % Platelet Count 280 Potassium Level 4.7 Prothrombin Time 14.0 Prothrombin Time Ratio 1.1 Red Blood Count 4.00 L Red Cell Distribution Width 14.1 Sodium Level 140 Thyroxine (T4) 6.4 Total Bilirubin 0.3 Total Protein 7.8 Triiodothyronine (T3) Uptake 32.7 Troponin I 0.033 White Blood Count 28.7 H Urine Bacteria RARE Urine Bilirubin NEGATIVE Urine Clarity CLEAR Urine Color LT. YELLOW Urine Epithelial Cells RARE Urine Glucose 0.25% H Urine Hemoglobin TRACE Urine Ketones NEGATIVE Urine Leukocyte Esterase NEGATIVE Urine Microscopic RBC 0-2 Urine Microscopic WBC 0-2 Urine Nitrite NEGATIVE Urine Specific [place] 1.015 Urine Total Protein TRACE Urine Urobilinogen 0.2 E.U./dL Urine pH 6.0 Lactic Acid Level 2.6 H Test 10/26/16 13:30 10/26/16 16:35 10/26/16 18:20 10/26/16 18:22 Creatine Kinase 627 #H 519 H Creatine Kinase Index 5.4 5.4 Creatinine Kinase MB (Mass) 33.70 H 28.20 H Lactic Acid Level 2.5 H 1.6 Troponin I 24.400 *H 28.800 *H Activated Partial Thromboplast Time 28.1 Basophils # 0.0 Basophils % 0.1 Blood Morphology Comment Eosinophils # 0.0 Eosinophils % 0.0 Hematocrit 32.1 L Hemoglobin 11.0 L INR International Normalized Ratio 1.07 Lymphocytes # 1.1 Lymphocytes % 4.6 L Mean Corpuscular Hemoglobin 29.8 Mean Corpuscular Hemoglobin Concent 34.4 Mean Corpuscular Volume 86.8 Mean Platelet Volume 7.4 Monocytes # 1.0 H Monocytes % 4.4 Neutrophils # 20.8 H Neutrophils % 90.9 H Nucleated Red Blood Cells # 0.0 Nucleated Red Blood Cells % 0.0 Platelet Count 197 # Prothrombin Time 13.9 Prothrombin Time Ratio 1.1 Red Blood Count 3.69 L Red Cell Distribution Width 13.8 White Blood Count 22.9 #H Bedside Glucose 188 Test 10/26/16 22:42 Bedside Glucose 217 Medications Medications Current Medications Aspirin (Aspirin) 81 mg DAILY PO ; Start 10/27/16 at 09:00 Clopidogrel Bisulfate (plaVIX) 75 mg DAILY PO ; Start 10/26/16 at 16:00 Digoxin (Digoxin) 0.125 mg DAILY@13 PO ; Start 10/26/16 at 16:00 Docusate Sodium (Colace) 100 mg BID PRN PO CONSTIPATION; Start 10/26/16 at 12: 00 Ferrous Sulfate (Ferrous Sulfate (Ec)) 325 mg BID PO ; Start 10/26/16 at 21:00 Metoprolol Tartrate (Lopressor) 50 mg BID PO ; Start 10/26/16 at 21:00 Rivaroxaban (Xarelto) 20 mg DAILY PO ; Start 10/26/16 at 18:00; Status Future Hold Senna (Senokot) 1 tab DAILY PO ; Start 10/27/16 at 09:00 Ondansetron HCl (Zofran Inj) 4 mg Q6H PRN IV NAUSEA AND/OR VOMITING; Start at 12:00 Methylprednisolone Sodium Succinate (Solu-Medrol) 60 mg Q8 IV Last administered on 10/26/16t 22:47; Admin Dose 60 MG; Start 10/26/16 at 14:00 Nitroglycerin (Nitroglycerin (Sl Tab) 0.4 Mg) 1 tab Q5M PRN SL CHEST PAIN; Start 10/26/16 at 12:00 Acetaminophen (Tylenol Tab) 650 mg Q6H PRN PO PAIN LEVEL 1-3 OR FEVER; Start at 12:00 Acetaminophen (Tylenol Supp) [address] PAIN LEVEL 1-3 OR FEVER; Start 10/26/16 at 12:00 Morphine Sulfate (morphine) 1 mg Q4H PRN IV PAIN LEVEL 7-10; Start 10/26/16 at 12:00 Lorazepam (Ativan) 1 mg Q2H PRN IV ANXIETY; Start 10/26/16 at 12:00 Pantoprazole 40 mg 40 mg DAILY@06 IV ; Start 10/27/16 at 06:00 Cefepime HCl (Maxipime 1gm/50 ml (Pmx)) 50 ml @ 100 mls/hr Q12 IVPB Last administered on 10/26/16 22:47; Admin Dose 100 MLS/HR; Start 10/26/16 at 21:00 Insulin Glargine (Lantus) 10 unit QPM SC Last administered on 10/26/16 22:46; Admin Dose 10 UNIT; Start 10/26/16 at 21:00 Miscellaneous Information 1 ea NOTE XX ; Start 10/26/16 at 15:30 Glucose (Glutose) 15 gm Q15M PRN PO DECREASED GLUCOSE; Start 10/26/16 at 15:30 Glucose (Glutose) 22.5 gm Q15M PRN PO DECREASED GLUCOSE; Start 10/26/16 at 15: 30 Dextrose (D50w Syringe) 25 ml Q15M PRN IV DECREASED GLUCOSE; Start 10/26/16 at 15:30 Dextrose (D50w Syringe) 50 ml Q15M PRN IV DECREASED GLUCOSE; Start 10/26/16 at 15:30 Glucagon (Glucagen) 1 mg Q15M PRN IM DECREASED GLUCOSE; Start 10/26/16 at 15:30 Glucose 15 gm 15 gm Q15M PRN BUCCAL DECREASED GLUCOSE; Start 10/26/16 at 15:30 Vancomycin HCl (Vancocin) 250 ml @ 125 mls/hr Q24H IVPB ; Start 10/27/16 at 10: 00 IV Flush (NS 10 ml) 10 ml PRN PRN IV IV PROTOCOL; Start 10/26/16 at 18:00 CHICHI HOLLY MD Oct 26, 2016 23:14
[2016-10-26] MEDS ORDERED: FUROSEMIDE 20 MG INJ IV ONE (23:30)
[2016-10-26] MEDS ORDERED: LABETALOL HCL 20MG INJ IV PRN (23:30)
[2016-10-27] VITALS (31 sets, daily range): BP systolic 111–156; BP diastolic 40–67; PULSE 50–75; RESP 10–27
[2016-10-27] MEDS: ALBUTEROL 0.5% (NEB) 2.5 MG/0.5 ML AMP NEB SCH ×6 (00:41→20:10)
[2016-10-27] MEDS: IPRATROPIUM (NEB) 0.5 MG/2.5 ML AMP NEB SCH ×6 (00:41→20:10)
[2016-10-27 01:22] LABS: CK-MB 17.9 ng/ml (0.0-2.4)
[2016-10-27 01:29] LABS: TROPONIN-I 17.6 ng/ml (0.00-0.12)
[2016-10-27] MEDS: METHYLPREDNISOLONE 125 MG INJ IV SCH (06:05)
[2016-10-27] MEDS: PANTOPRAZOLE 40 MG INJ IV SCH (06:05)
[2016-10-27 07:11] LABS: HEMATOCRIT 28.6 % (37.0-47.0); LYMPHOCYTES # 0.5 10^3/ul (0.8-2.9); LYMPHOCYTES % 4.4 % (15.0-51.0); MEAN CORPUSCULAR HEMOGLOBIN 30.4 pg (29.0-33.0); MEAN CORPUSCULAR HGB CONC 34.9 g/dl (32.0-37.0); MEAN CORPUSCULAR VOLUME 87.3 fl (82.0-101.0); MEAN PLATELET VOLUME 7.9 fl (7.4-10.4); MONOCYTE # 0.2 10^3/ul (0.3-0.9); MONOCYTES % 1.4 % (0.0-11.0); NEUTROPHIL # 10.4 10^3/ul (1.6-7.5); NEUTROPHILS % 94.2 % (39.0-77.0); PLATELET COUNT 152 10^3/UL (140-440); RED BLOOD COUNT 3.28 10^6/ul (4.20-5.40); RED CELL DISTRIBUTION WIDTH 13.9 % (11.5-14.5); UNCORRECTED WBC 11.1 10^3/ul (4.8-10.8); WHITE BLOOD COUNT 11.1 10^3/ul (4.8-10.8)
[2016-10-27 07:16] LABS: ALBUMIN 3.4 g/dl (3.3-4.9)
[2016-10-27 07:17] LABS: POTASSIUM 4.5 mmol/L (3.5-5.1)
[2016-10-27 07:19] LABS: BILIRUBIN,INDIRECT 0.3 mg/dl (0-1.1); BILIRUBIN,TOTAL 0.3 mg/dl (0.2-1.3); CREATININE 0.89 mg/dl (0.44-1.00); TOTAL PROTEIN 6.3 g/dl (6.1-8.1)
[2016-10-27 07:20] LABS: CALCIUM 8.3 mg/dl (8.4-10.2); CHOL/HDL RATIO 4.5 RATIO; MAGNESIUM 1.9 mg/dl (1.7-2.5)
[2016-10-27 07:39] LABS: CONDITION 1; LH ANALYZER COMMENTS 1
[2016-10-27 07:45] LABS: CK-MB 18.5 ng/ml (0.0-2.4)
[2016-10-27 07:50] LABS: TROPONIN-I 18.1 ng/ml (0.00-0.12)
--- NOTE | 2016-10-27 08:14 | CONS ---
Date/Time of Note Date/Time of Note DATE: 10/27/16 TIME: 08:10 Assessment/Plan Assessment/Plan Additional Assessment/Plan Assessment and recommendations; 1. Patient admitted with respiratory failure with severe bilateral pneumonia with marked clinical improvement. Improving leukocytosis. 2. History of CHF and diastolic dysfunction. 3. History of aortic stenosis. History of CABG surgery in the remote past. 4. History of hypertension. Continue current treatment supportive care current antibiotics. Obtain follow- up chest x-ray. I did have a detailed discussion the patient's daughter at bedside and answered all her questions. Consultation Date/Type/Reason Admit Date/Time Oct 26, 2016 at 10:22 Initial Consult Date 10/26/16 Type of Consultation: Cardiology Referring Provider: AXEL CHERRY MD 24 HR Interval Summary Free Text/Dictation Patient condition is markedly improved patient has been taken off BiPAP and is maintained on 30% Ventimask. Patient improves markedly decreased shortness of breath now denies any chest pain wheezing cough sputum production hemoptysis. General examination; elderly lady awake alert oriented currently in no distress. Exam/Review of Systems Vital Signs Vitals Vital Signs Date Time Temp Pulse Resp B/P Pulse Ox O2 Delivery O2 Flow Rate FiO2 10/27/16 07:00 71 22 139/60 97 Mask 10.0 10/27/16 04:00 97.9 10/26/16 17:00 50 Intake and Output 10/26/16 10/26/16 10/27/16 15:00 23:00 07:00 Intake Total 86 ml 129.5 ml Output Total 625 ml 700 ml Balance -539 ml -570.5 ml Exam H EENT examination; supple neck, positive JVD. No lymphadenopathy. Pharynx is clear. No neck masses. No thyromegaly. Next Chest examination; diminished but clear breath sounds. S1-S2 audible no murmurs regular rhythm. There is a well-healed sternal scar. Next Abdomen examination; soft, nondistended, no organomegaly, bowel sounds audible. Next Extremity examination; no peripheral edema. Pulses 1+ bilaterally. [employer] examination; no focal deficit. Results Result Diagram: 10/27/16 0600 10/27/16 0600 Results 24 hrs Laboratory Tests Test 10/26/16 08:12 10/26/16 09:30 10/26/16 12:00 10/26/16 13:30 Activated Partial Thromboplast Time 25.8 Alanine Aminotransferase (ALT/SGPT) 22 Albumin 4.1 Albumin/Globulin Ratio 1.10 Alkaline Phosphatase 83 Anion Gap 24 H Aspartate Amino Transf (AST/SGOT) 23 B-Type Natriuretic Peptide 3030 H Band Neutrophils % 8.0 H Basophils # Basophils % Blood Urea Nitrogen 21 H Calcium Level 8.6 Carbon Dioxide Level 18 L Chloride Level 103 Creatine Kinase 35 627 #H Creatine Kinase Index 1.5 5.4 Creatinine 0.90 Creatinine Kinase MB (Mass) 0.51 33.70 H Differential Comment MANUAL DIFF Direct Bilirubin 0.00 Eosinophils # Eosinophils % Free Thyroxine Index 2.09 Globulin 3.70 H Glucose Level 351 H Hematocrit 34.9 L Hemoglobin 11.8 L INR International Normalized Ratio 1.08 Indirect Bilirubin 0.3 Lymphocytes # 3.4 H Lymphocytes % 12.0 L Mean Corpuscular Hemoglobin 29.4 Mean Corpuscular Hemoglobin Concent 33.6 Mean Corpuscular Volume 87.4 Mean Platelet Volume 8.0 Monocytes # 0.9 Monocytes % 3.0 Neutrophils # 22.1 H Neutrophils % 77.0 Nucleated Red Blood Cells # Nucleated Red Blood Cells % Platelet Count 280 Potassium Level 4.7 Prothrombin Time 14.0 Prothrombin Time Ratio 1.1 Red Blood Count 4.00 L Red Cell Distribution Width 14.1 Sodium Level 140 Thyroxine (T4) 6.4 Total Bilirubin 0.3 Total Protein 7.8 Triiodothyronine (T3) Uptake 32.7 Troponin I 0.033 24.400 *H White Blood Count 28.7 H Urine Bacteria RARE Urine Bilirubin NEGATIVE Urine Clarity CLEAR Urine Color LT. YELLOW Urine Epithelial Cells RARE Urine Glucose 0.25% H Urine Hemoglobin TRACE Urine Ketones NEGATIVE Urine Leukocyte Esterase NEGATIVE Urine Microscopic RBC 0-2 Urine Microscopic WBC 0-2 Urine Nitrite NEGATIVE Urine Specific [place] 1.015 Urine Total Protein TRACE Urine Urobilinogen 0.2 E.U./dL Urine pH 6.0 Lactic Acid Level 2.6 H 2.5 H Test 10/26/16 16:35 10/26/16 18:20 10/26/16 18:22 10/26/16 22:40 Activated Partial Thromboplast Time 28.1 42.1 H Basophils # 0.0 Basophils % 0.1 Blood Morphology Comment Eosinophils # 0.0 Eosinophils % 0.0 Hematocrit 32.1 L Hemoglobin 11.0 L INR International Normalized Ratio 1.07 Lymphocytes # 1.1 Lymphocytes % 4.6 L Mean Corpuscular Hemoglobin 29.8 Mean Corpuscular Hemoglobin Concent 34.4 Mean Corpuscular Volume 86.8 Mean Platelet Volume 7.4 Monocytes # 1.0 H Monocytes % 4.4 Neutrophils # 20.8 H Neutrophils % 90.9 H Nucleated Red Blood Cells # 0.0 Nucleated Red Blood Cells % 0.0 Platelet Count 197 # Prothrombin Time 13.9 Prothrombin Time Ratio 1.1 Red Blood Count 3.69 L Red Cell Distribution Width 13.8 White Blood Count 22.9 #H Creatine Kinase 519 H Creatine Kinase Index 5.4 Creatinine Kinase MB (Mass) 28.20 H Lactic Acid Level 1.6 Troponin I 28.800 *H Bedside Glucose 188 Test 10/26/16 22:42 10/27/16 00:10 10/27/16 02:10 10/27/16 06:00 Bedside Glucose 217 Creatine Kinase 382 H 364 H Creatine Kinase Index 4.7 5.1 Creatinine Kinase MB (Mass) 17.90 H 18.50 H Troponin I 17.600 *H 18.100 *H Activated Partial Thromboplast Time 51.5 H Alanine Aminotransferase (ALT/SGPT) 34 Albumin 3.4 Alkaline Phosphatase 67 Anion Gap 17 #H Aspartate Amino Transf (AST/SGOT) 82 H Basophils # 0.0 Basophils % 0.0 Blood Urea Nitrogen 26 H Calcium Level 8.3 L Carbon Dioxide Level 26 Chloride Level 105 Cholesterol Level 171 Cholesterol/HDL Ratio 4.5 Creatinine 0.89 Direct Bilirubin 0.00 Eosinophils # 0.0 Eosinophils % 0.0 Glucose Level 262 H HDL Cholesterol 38 Hematocrit 28.6 L Hemoglobin 10.0 L Indirect Bilirubin 0.3 LDL Cholesterol, Calculated 111 Lymphocytes # 0.5 L Lymphocytes % 4.4 L Magnesium Level 1.9 Mean Corpuscular Hemoglobin 30.4 Mean Corpuscular Hemoglobin Concent 34.9 Mean Corpuscular Volume 87.3 Mean Platelet Volume 7.9 Monocytes # 0.2 L Monocytes % 1.4 Neutrophils # 10.4 H Neutrophils % 94.2 H Nucleated Red Blood Cells # 0.0 Nucleated Red Blood Cells % 0.0 Platelet Count 152 # Potassium Level 4.5 Red Blood Count 3.28 L Red Cell Distribution Width 13.9 Sodium Level 143 Total Bilirubin 0.3 Total Protein 6.3 # Triglycerides Level 109 White Blood Count 11.1 #H Medications Medications Current Medications Aspirin (Aspirin) 81 mg DAILY PO ; Start 10/27/16 at 09:00 Clopidogrel Bisulfate (plaVIX) 75 mg DAILY PO ; Start 10/26/16 at 16:00 Digoxin (Digoxin) 0.125 mg DAILY@13 PO ; Start 10/26/16 at 16:00 Docusate Sodium (Colace) 100 mg BID PRN PO CONSTIPATION; Start 10/26/16 at 12: 00 Ferrous Sulfate (Ferrous Sulfate (Ec)) 325 mg BID PO ; Start 10/26/16 at 21:00 Metoprolol Tartrate (Lopressor) 50 mg BID PO ; Start 10/26/16 at 21:00 Rivaroxaban (Xarelto) 20 mg DAILY PO ; Start 10/26/16 at 18:00; Status Future Hold Senna (Senokot) 1 tab DAILY PO ; Start 10/27/16 at 09:00 Ondansetron HCl (Zofran Inj) 4 mg Q6H PRN IV NAUSEA AND/OR VOMITING; Start at 12:00 Methylprednisolone Sodium Succinate (Solu-Medrol) 60 mg Q8 IV Last administered on 10/27/16 06:05; Admin Dose 60 MG; Start 10/26/16 at 14:00 Nitroglycerin (Nitroglycerin (Sl Tab) 0.4 Mg) 1 tab Q5M PRN SL CHEST PAIN; Start 10/26/16 at 12:00 Acetaminophen (Tylenol Tab) 650 mg Q6H PRN PO PAIN LEVEL 1-3 OR FEVER; Start at 12:00 Acetaminophen (Tylenol Supp) 650 mg Q4H PRN [place] PAIN LEVEL 1-3 OR FEVER; Start 10/26/16 at 12:00 Morphine Sulfate (morphine) 1 mg Q4H PRN IV PAIN LEVEL 7-10; Start 10/26/16 at 12:00 Lorazepam (Ativan) 1 mg Q2H PRN IV ANXIETY; Start 10/26/16 at 12:00 Pantoprazole 40 mg 40 mg DAILY@06 IV Last administered on 10/27/16 06:05; Admin Dose 40 MG; Start 10/27/16 at 06:00 Cefepime HCl (Maxipime 1gm/50 ml (Pmx)) 50 ml @ 100 mls/hr Q12 IVPB Last administered on 10/26/16 22:47; Admin Dose 100 MLS/HR; Start 10/26/16 at 21:00 Insulin Glargine (Lantus) 10 unit QPM SC Last administered on 10/26/16 22:46; Admin Dose 10 UNIT; Start 10/26/16 at 21:00 Miscellaneous Information 1 ea NOTE XX ; Start 10/26/16 at 15:30 Glucose (Glutose) 15 gm Q15M PRN PO DECREASED GLUCOSE; Start 10/26/16 at 15:30 Glucose (Glutose) 22.5 gm Q15M PRN PO DECREASED GLUCOSE; Start 10/26/16 at 15: 30 Dextrose (D50w Syringe) 25 ml Q15M PRN IV DECREASED GLUCOSE; Start 10/26/16 at 15:30 Dextrose (D50w Syringe) 50 ml Q15M PRN IV DECREASED GLUCOSE; Start 10/26/16 at 15:30 Glucagon (Glucagen) 1 mg Q15M PRN IM DECREASED GLUCOSE; Start 10/26/16 at 15:30 Glucose 15 gm 15 gm Q15M PRN BUCCAL DECREASED GLUCOSE; Start 10/26/16 at 15:30 Vancomycin HCl (Vancocin) 250 ml @ 125 mls/hr Q24H IVPB ; Start 10/27/16 at 10: 00 IV Flush (NS 10 ml) 10 ml PRN PRN IV IV PROTOCOL; Start 10/26/16 at 18:00 Atorvastatin Calcium (Lipitor) 80 mg HS PO ; Start 10/27/16 at 21:00 Labetalol HCl (Labetalol) 10 mg Q4 PRN IV SBP>150; Start 10/26/16 at 23:30 GHULAM CARRASCO Oct 27, 2016 08:14
[2016-10-27] MEDS: INSULIN ASPART [NOVOLOG] 3 ML PEN SC SCH ×4 (08:21→21:14)
[2016-10-27] MEDS: CEFEPIME 1GM/50 ML (PMX) 50 ML IVPB SCH ×2 (08:22→20:58)
[2016-10-27] MEDS: CLOPIDOGREL 75 MG TAB PO SCH (08:23)
[2016-10-27] MEDS: METOPROLOL 50 MG TAB PO SCH ×2 (08:23→20:57)
[2016-10-27] MEDS: SENNA TAB PO SCH (08:23)
[2016-10-27] MEDS: FERROUS SULFATE (EC) 325 MG TAB PO SCH ×2 (08:23→20:57)
[2016-10-27] MEDS: ASPIRIN 81 MG TAB PO SCH (08:23)
[2016-10-27 10:41] LABS: AADO2 Arterial 111.5 mmHg (7.0-24.0); Allen Test ACCEPTAB; Arterial Base Excess -1.2 mmol/L (-3.0-3); Arterial COHb 0 % (0.0-3.0); Arterial Fraction of Oxyhgb 99.4 % (93.0-99.0); Arterial HCO3 24.1 mmol/L (22.0-26.0); Arterial MetHb 0 % (0.0-1.5); Arterial Total Hemglobin 12.3 g/dl (12.0-18.0); MODE MASK - SIMPLE
[2016-10-27] MEDS: VANCOMYCIN 1 GM in NS 250 ML IVPB SCH (10:41)
[2016-10-27] MEDS ORDERED: SOD CHLORIDE 0.9% 100 ML ONE (11:23)
--- NOTE | 2016-10-27 11:54 | PN ---
Date/Time of Note Date/Time of Note DATE: 10/27/16 TIME: 11:50 Assessment/Plan VTE Prophylaxis VTE Prophylaxis Intervention: heparin Lines/Catheters IV [facility]from [facility]): PICC Line Central line still needed: Yes Urinary Cath still in place: Yes Reason Cath still needed: urinary retention Assessment/Plan Chief Complaint/Hosp Course ASSESSMENT AND PLAN: 1. Acute respiratory failure, status post BiPAP which has been transitioned to facemask. Pulmonology has been consulted. Has been placed on Solu-Medrol, breathing treatment. 2. Non-ST myocardial infarction. Cardiology has been consulted. Continue aspirin and Plavix. Patient has been placed on heparin drip. At this time, the patient's daughter will decide regarding to proceed with left heart catheterization procedure. Waiting for cardiology. 3. History of coronary artery disease status post quadruple bypass. Continue medical management. 4. Essential hypertension, well controlled on medical management at this time. 5. SIRS secondary to multifocal pneumonia, on cefepime and vancomycin. 6. Diabetes mellitus on insulin sliding scale and Lantus. 7. Multifocal pneumonia, on cefepime and vancomycin. Pulmonology and ID has been consulted. 8. For deep venous thrombosis prophylaxis, on heparin drip, hold Xarelto 9. For gastrointestinal prophylaxis, on proton pump inhibitor. We will continue to monitor patient closely. Further recommendations, management, and treatment course as per patient's daughter recommendation and wishes. Patient is DNR. Will continue to monitor patient closely for further recommendations, management, and treatment as per clinical course. Problems: Subjective 24 Hr Interval Summary Free Text/Dictation Patient denies of any chest pain or shortness of breath Positive bowel movement Tolerating oral intake As per patient's daughter requests no surgical intervention at this time Exam/Review of Systems Vital Signs Vitals Vital Signs Date Time Temp Pulse Resp B/P Pulse Ox O2 Delivery O2 Flow Rate FiO2 10/27/16 11:00 64 23 134/51 100 Nasal Cannula 4.0 10/27/16 08:00 98.0 10/26/16 17:00 50 Intake and Output 10/26/16 10/26/16 10/27/16 15:00 23:00 07:00 Intake Total 86 ml 129.5 ml Output Total 625 ml 700 ml Balance -539 ml -570.5 ml Exam General: The patient is well-developed, Not in acute distress. HEENT: Atraumatic, normocephalic. The pupils are equal and round . Neck: Supple with full range of motion. Chest: Normal expansion of the thorax during inspiration Lungs: Decreased breath sounds bilateral lower lung field Heart: Normal S1-S2, Regular rhythm and rate. Abdomen: Soft , nontender, nondistended , bowel sounds are present. Extremities: Normal to inspection, no edema no cyanosis Neurologic: Normal mental status,The patient is awake, alert and oriented . Results Result Diagram: 10/27/16 0600 10/27/16 0600 Results 24 hrs Laboratory Tests Test 10/26/16 12:00 10/26/16 13:30 10/26/16 16:35 10/26/16 18:20 Lactic Acid Level 2.6 H 2.5 H 1.6 Creatine Kinase 627 #H 519 H Creatine Kinase Index 5.4 5.4 Creatinine Kinase MB (Mass) 33.70 H 28.20 H Troponin I 24.400 *H 28.800 *H Activated Partial Thromboplast Time 28.1 Basophils # 0.0 Basophils % 0.1 Blood Morphology Comment Eosinophils # 0.0 Eosinophils % 0.0 Hematocrit 32.1 L Hemoglobin 11.0 L INR International Normalized Ratio 1.07 Lymphocytes # 1.1 Lymphocytes % 4.6 L Mean Corpuscular Hemoglobin 29.8 Mean Corpuscular Hemoglobin Concent 34.4 Mean Corpuscular Volume 86.8 Mean Platelet Volume 7.4 Monocytes # 1.0 H Monocytes % 4.4 Neutrophils # 20.8 H Neutrophils % 90.9 H Nucleated Red Blood Cells # 0.0 Nucleated Red Blood Cells % 0.0 Platelet Count 197 # Prothrombin Time 13.9 Prothrombin Time Ratio 1.1 Red Blood Count 3.69 L Red Cell Distribution Width 13.8 White Blood Count 22.9 #H Test 10/26/16 18:22 10/26/16 22:40 10/26/16 22:42 10/27/16 00:10 Bedside Glucose 188 217 Activated Partial Thromboplast Time 42.1 H Creatine Kinase 382 H Creatine Kinase Index 4.7 Creatinine Kinase MB (Mass) 17.90 H Troponin I 17.600 *H Test 10/27/16 02:10 10/27/16 06:00 10/27/16 08:00 10/27/16 08:12 Activated Partial Thromboplast Time 51.5 H Alanine Aminotransferase (ALT/SGPT) 34 Albumin 3.4 Alkaline Phosphatase 67 Anion Gap 17 #H Aspartate Amino Transf (AST/SGOT) 82 H Basophils # 0.0 Basophils % 0.0 Blood Urea Nitrogen 26 H Calcium Level 8.3 L Carbon Dioxide Level 26 Chloride Level 105 Cholesterol Level 171 Cholesterol/HDL Ratio 4.5 Creatine Kinase 364 H Creatine Kinase Index 5.1 Creatinine 0.89 Creatinine Kinase MB (Mass) 18.50 H Direct Bilirubin 0.00 Eosinophils # 0.0 Eosinophils % 0.0 Glucose Level 262 H HDL Cholesterol 38 Hematocrit 28.6 L Hemoglobin 10.0 L Indirect Bilirubin 0.3 LDL Cholesterol, Calculated 111 Lymphocytes # 0.5 L Lymphocytes % 4.4 L Magnesium Level 1.9 Mean Corpuscular Hemoglobin 30.4 Mean Corpuscular Hemoglobin Concent 34.9 Mean Corpuscular Volume 87.3 Mean Platelet Volume 7.9 Monocytes # 0.2 L Monocytes % 1.4 Neutrophils # 10.4 H Neutrophils % 94.2 H Nucleated Red Blood Cells # 0.0 Nucleated Red Blood Cells % 0.0 Platelet Count 152 # Potassium Level 4.5 Red Blood Count 3.28 L Red Cell Distribution Width 13.9 Sodium Level 143 Total Bilirubin 0.3 Total Protein 6.3 # Triglycerides Level 109 Troponin I 18.100 *H White Blood Count 11.1 #H Arterial Blood HCO3 24.1 Arterial Blood Base Excess -1.2 Arterial Blood Oxygen Saturation 99.4 [place] Test ACCEPTAB Arterial Blood Gas Puncture Site Right Radial Arterial Blood Carboxyhemoglobin 0 Arterial Blood Date Drawn 10/27/2016 8:23:46 AM Arterial Blood Methemoglobin 0 Arterial Blood pCO2 (Temp correct) 42.3 Arterial Blood pH (Temp corrected) 7.373 Arterial Blood pO2 (Temp corrected) 277.0 H Blood Gas A-a O2 Differential 111.5 H Blood Gas Modality MASK - SIMPLE Blood Gas Notified Time 10/27/2016 8:37:33 AM Blood Gas Notified Whom TM Blood Gas Specimen Source Blood arterial Blood Gas Temperature 37.0 FiO2 61.0 Oxyhemoglobin Percent 99.4 H Total Hemoglobin 12.3 Bedside Glucose 284 H Test 10/27/16 09:00 Activated Partial Thromboplast Time 65.6 H Medications Medications Current Medications Aspirin (Aspirin) 81 mg DAILY PO Last administered on 10/27/16t 08:23; Admin Dose 81 MG; Start 10/27/16 at 09:00 Clopidogrel Bisulfate (plaVIX) 75 mg DAILY PO Last administered on 10/27/16 08 :23; Admin Dose 75 MG; Start 10/26/16 at 16:00 Digoxin (Digoxin) 0.125 mg DAILY@13 PO ; Start 10/26/16 at 16:00 Docusate Sodium (Colace) 100 mg BID PRN PO CONSTIPATION; Start 10/26/16 at 12: 00 Ferrous Sulfate (Ferrous Sulfate (Ec)) 325 mg BID PO Last administered on 08:23; Admin Dose 325 MG; Start 10/26/16 at 21:00 Metoprolol Tartrate (Lopressor) 50 mg BID PO Last administered on 10/27/16 08: 23; Admin Dose 50 MG; Start 10/26/16 at 21:00 Rivaroxaban (Xarelto) 20 mg DAILY PO ; Start 10/26/16 at 18:00; Status Future Hold Senna (Senokot) 1 tab DAILY PO Last administered on 10/27/16 08:23; Admin Dose 1 TAB; Start 10/27/16 at 09:00 Ondansetron HCl (Zofran Inj) 4 mg Q6H PRN IV NAUSEA AND/OR VOMITING; Start at 12:00 Methylprednisolone Sodium Succinate (Solu-Medrol) 60 mg Q8 IV Last administered on 10/27/16 06:05; Admin Dose 60 MG; Start 10/26/16 at 14:00 Nitroglycerin (Nitroglycerin (Sl Tab) 0.4 Mg) 1 tab Q5M PRN SL CHEST PAIN; Start 10/26/16 at 12:00 Acetaminophen (Tylenol Tab) 650 mg Q6H PRN PO PAIN LEVEL 1-3 OR FEVER; Start at 12:00 Acetaminophen (Tylenol Supp) 650 mg Q4H PRN [place] PAIN LEVEL 1-3 OR FEVER; Start 10/26/16 at 12:00 Morphine Sulfate (morphine) 1 mg Q4H PRN IV PAIN LEVEL 7-10; Start 10/26/16 at 12:00 Lorazepam (Ativan) 1 mg Q2H PRN IV ANXIETY; Start 10/26/16 at 12:00 Pantoprazole 40 mg 40 mg DAILY@06 IV Last administered on 10/27/16 06:05; Admin Dose 40 MG; Start 10/27/16 at 06:00 Cefepime HCl (Maxipime 1gm/50 ml (Pmx)) 50 ml @ 100 mls/hr Q12 IVPB Last administered on 10/27/16 08:22; Admin Dose 100 MLS/HR; Start 10/26/16 at 21:00 Insulin Glargine (Lantus) 10 unit QPM SC Last administered on 10/26/16 22:46; Admin Dose 10 UNIT; Start 10/26/16 at 21:00 Miscellaneous Information 1 ea NOTE XX ; Start 10/26/16 at 15:30 Glucose (Glutose) 15 gm Q15M PRN PO DECREASED GLUCOSE; Start 10/26/16 at 15:30 Glucose (Glutose) 22.5 gm Q15M PRN PO DECREASED GLUCOSE; Start 10/26/16 at 15: 30 Dextrose (D50w Syringe) 25 ml Q15M PRN IV DECREASED GLUCOSE; Start 10/26/16 at 15:30 Dextrose (D50w Syringe) 50 ml Q15M PRN IV DECREASED GLUCOSE; Start 10/26/16 at 15:30 Glucagon (Glucagen) 1 mg Q15M PRN IM DECREASED GLUCOSE; Start 10/26/16 at 15:30 Glucose 15 gm 15 gm Q15M PRN BUCCAL DECREASED GLUCOSE; Start 10/26/16 at 15:30 Vancomycin HCl (Vancocin) 250 ml @ 125 mls/hr Q24H IVPB Last administered on 10:41; Admin Dose 125 MLS/HR; Start 10/27/16 at 10:00 IV Flush (NS 10 ml) 10 ml PRN PRN IV IV PROTOCOL; Start 10/26/16 at 18:00 Atorvastatin Calcium (Lipitor) 80 mg HS PO ; Start 10/27/16 at 21:00 Labetalol HCl (Labetalol) 10 mg Q4 PRN IV SBP>150; Start 10/26/16 at 23:30 AXEL CHERRY MD Oct 27, 2016 11:54
[2016-10-27] MEDS: DIGOXIN 0.125 MG TAB PO SCH (13:00)
[2016-10-27] MEDS: HEPARIN 25000 UNITS/250 ML 250 ML IV SCH (17:03)
--- NOTE | 2016-10-27 17:36 | RADRPT ---
Echocardiogram Report Patient Name: GUERO TREVINO Gender: Female Date: 1930 Study Date: 26-Oct-2016 Drier Unloader: Maggie [facility] Location: [facility] [place] Ref. Physician: AXEL CHERRY Quality: Adequate Procedures: Transthoracic echocardiogram with complete 2D, M-Mode, and doppler examination. Indications: Congestive Heart Failure. 2D/M Mode Doppler Measurement Value Normal Ranges Measurement Value Normal Ranges LVIDd 2D 4.4 3.5 - 5.6 cm RUTHIE Vmax 0.6 cm2 LVIDs 2D 3.0 2.1 - 4.1 cm RUTHIE VTI 0.5 cm2 FS 2D 31.7 % AV Mean Jeremi 2.9 m/sec LVPWd 2D 1.4 0.6 - 1.1 cm AV Mean PG 37.0 mmHg IVSd 2D 1.5 0.6 - 1.1 cm AV Peak Jeremi 4.0 m/sec IVS/LVPW 2D 1.0 AV Peak PG 64.0 mmHg AoR Diam 2D 2.5 2.0 - 3.7 cm AV VTI 96.2 cm LA/Ao 2D 2 0 - 1 LVOT Mean Jeremi 0.6 m/sec EDV 2D 88.1 cm3 LVOT Mean PG 2.0 mmHg ESV 2D 28.1 cm3 LVOT Peak Jeremi 0.9 m/sec LA Dimen 2D 4.2 2.3 - 4.0 cm LVOT Peak PG 3.0 mmHg LVOT Diam 1.8 cm LVOT VTI 20.6 cm LVOT Area 2.5 cm2 MV E Peak Jeremi 1.2 m/sec MV A Peak Jeremi 0.8 m/sec MV E/A 1.5 MV Decel Time 218 msec MV E/A 1.5 MR Peak PG 92.0 mmHg MR Peak Jeremi 4.8 m/sec TR Peak Jeremi 2.9 m/sec TR Peak PG 33.0 mmHg Findings Left Ventricle: Lower limits of normal systolic function. Normal left ventricular cavity size. Moderate concentric left ventricular hypertrophy. Ejection fraction is visually estimated at 5055 %. Abnormal Diastolic Function. Right Ventricle: Normal right ventricular size. Normal right ventricular systolic function. Left Atrium: There is moderate enlargement of left atrium. Right Atrium: Right atrium at upper limits of normal. Mitral Valve: Mild mitral leaflet calcification. Mild mitral annular calcification. Mild mitral valve regurgitation. Aortic Valve: Severe aortic stenosis. Max PG 64.00 mmHg. Mean PG 37.00 mmHg. Aortic valve area 0.50 cm2. Aortic cusps appear moderately calcified. Trace aortic valve regurgitation. Tricuspid Valve: Normal appearance of the tricuspid valve. Estimated peak PA systolic pressure 49 mmHg. There is mild tricuspid regurgitation. Pulmonic Valve: Pulmonic valve not well visualized. There is trace pulmonic regurgitation. Pericardium: Left pleural effusion seen. Aorta: Normal aortic root. IVC: Dilated inferior vena cava with poor inspiratory collapse consistent with elevated right atrial pressures. Conclusions 1.The left ventricle is normal in size with lower limits of normal systolic function. 2.Estimated left ventricular ejection fraction of 50-55%. 3.Moderate concentric left ventricular hypertrophy. 4.Severe aortic stenosis. 5.Moderate left atrial enlargement. Electronically Signed By: Raffy Hui 27-Oct-2016 17:36:19 -0800 Patient Name: GUERO TREVINO Study Date: [id number]-Oct-[id number]
--- NOTE | 2016-10-27 19:49 | CONS ---
Date/Time of Note Date/Time of Note DATE: 10/27/16 TIME: 19:44 Assessment/Plan Assessment/Plan Chief Complaint/Hosp Course Assessment: NSTEMI Coronary artery disease - history of CABG, history of PCI in 2016 (details unknown) Acute on chronic diastolic heart failure - improved with gentle diuresis Severe aortic stenosis - refused valve replacement in the past Acute hypoxic respiratory failure - off BiPAP, on face mask Bilateral pneumonia Possible paroxysmal atrial fibrillation - currently sinus rhythm Hypertension Dyslipidemia Diabetes mellitus Recommendations: -echocardiogram showed LVEF 50-55%, moderate LVH, severe aortic stenosis -continue heparin drip for a total of 48 hours -continue aspirin 81mg and clopidogrel 75mg daily -discontinue digoxin due to bradycardia -continue metoprolol 50mg BID, as heart rate can tolerate -atorvastatin 80mg daily -discussed with patient's two daughters at bedside - they would like to pursue conservative management of NSTEMI and declines coronary angiography, which seems to be reasonable in an elderly patient with dementia and preserved LVEF Problems: Consultation Date/Type/Reason Admit Date/Time Oct 26, 2016 at 10:22 Initial Consult Date 10/26/16 Type of Consultation: Cardiology 24 HR Interval Summary Free Text/Dictation Transferred out of ICU. Remarkably improved. On nasal canula. Still confused, but much more alert. Troponin peaked at 28 and downtrending. Detailed Summary Additional Comments Unable to obtain review of systems due to patient's mental status. Exam/Review of Systems Vital Signs Vitals Vital Signs Date Time Temp Pulse Resp B/P Pulse Ox O2 Delivery O2 Flow Rate FiO2 10/27/16 16:48 70 20 Nasal Cannula 2.0 28 10/27/16 15:00 98.1 154/67 97 Intake and Output 10/26/16 10/26/16 10/27/16 15:00 23:00 07:00 Intake Total 86 ml 129.5 ml Output Total 625 ml 700 ml Balance -539 ml -570.5 ml Exam Constitutional: No distress Psych: confusion Head: atraumatic, normocephalic Eyes: nl conjunctiva, nl lids ENMT: nl external ears & nose, nl nasal mucosa & septum Neck: non-tender, supple Respiratory: crackles/rales, diminished breath sounds Cardiovascular: regular rate and rhythm, systolic murmur Gastrointestinal: non-tender, soft Musculoskeletal: nl extremities to inspection Extremities: edema, No clubbing, No cyanosis Neurological: No nl mental status, No nl speech Results Result Diagram: 10/27/16 0600 10/27/16 0600 Results 24 hrs Laboratory Tests Test 10/26/16 22:40 10/26/16 22:42 10/27/16 00:10 10/27/16 02:10 Activated Partial Thromboplast Time 42.1 H 51.5 H Bedside Glucose 217 Creatine Kinase 382 H Creatine Kinase Index 4.7 Creatinine Kinase MB (Mass) 17.90 H Troponin I 17.600 *H Test 10/27/16 06:00 10/27/16 08:00 10/27/16 08:12 10/27/16 09:00 Alanine Aminotransferase (ALT/SGPT) 34 Albumin 3.4 Alkaline Phosphatase 67 Anion Gap 17 #H Aspartate Amino Transf (AST/SGOT) 82 H Basophils # 0.0 Basophils % 0.0 Blood Urea Nitrogen 26 H Calcium Level 8.3 L Carbon Dioxide Level 26 Chloride Level 105 Cholesterol Level 171 Cholesterol/HDL Ratio 4.5 Creatine Kinase 364 H Creatine Kinase Index 5.1 Creatinine 0.89 Creatinine Kinase MB (Mass) 18.50 H Direct Bilirubin 0.00 Eosinophils # 0.0 Eosinophils % 0.0 Glucose Level 262 H HDL Cholesterol 38 Hematocrit 28.6 L Hemoglobin 10.0 L Indirect Bilirubin 0.3 LDL Cholesterol, Calculated 111 Lymphocytes # 0.5 L Lymphocytes % 4.4 L Magnesium Level 1.9 Mean Corpuscular Hemoglobin 30.4 Mean Corpuscular Hemoglobin Concent 34.9 Mean Corpuscular Volume 87.3 Mean Platelet Volume 7.9 Monocytes # 0.2 L Monocytes % 1.4 Neutrophils # 10.4 H Neutrophils % 94.2 H Nucleated Red Blood Cells # 0.0 Nucleated Red Blood Cells % 0.0 Platelet Count 152 # Potassium Level 4.5 Red Blood Count 3.28 L Red Cell Distribution Width 13.9 Sodium Level 143 Total Bilirubin 0.3 Total Protein 6.3 # Triglycerides Level 109 Troponin I 18.100 *H White Blood Count 11.1 #H Arterial Blood HCO3 24.1 Arterial Blood Base Excess -1.2 Arterial Blood Oxygen Saturation 99.4 [place] Test ACCEPTAB Arterial Blood Gas Puncture Site Right Radial Arterial Blood Carboxyhemoglobin 0 Arterial Blood Date Drawn 10/27/2016 8:23:46 AM Arterial Blood Methemoglobin 0 Arterial Blood pCO2 (Temp correct) 42.3 Arterial Blood pH (Temp corrected) 7.373 Arterial Blood pO2 (Temp corrected) 277.0 H Blood Gas A-a O2 Differential 111.5 H Blood Gas Modality MASK - SIMPLE Blood Gas Notified Time 10/27/2016 8:37:33 AM Blood Gas Notified Whom TM Blood Gas Specimen Source Blood arterial Blood Gas Temperature 37.0 FiO2 61.0 Oxyhemoglobin Percent 99.4 H Total Hemoglobin 12.3 Bedside Glucose 284 H Activated Partial Thromboplast Time 65.6 H Test 10/27/16 12:04 10/27/16 15:20 10/27/16 16:58 Bedside Glucose 293 H 306 H Activated Partial Thromboplast Time 62.1 H Medications Medications Current Medications Aspirin (Aspirin) 81 mg DAILY PO Last administered on 10/27/16 08:23; Admin Dose 81 MG; Start 10/27/16 at 09:00 Clopidogrel Bisulfate (plaVIX) 75 mg DAILY PO Last administered on 10/27/16 08 :23; Admin Dose 75 MG; Start 10/26/16 at 16:00 Digoxin (Digoxin) 0.125 mg DAILY@13 PO ; Start 10/26/16 at 16:00 Docusate Sodium (Colace) 100 mg BID PRN PO CONSTIPATION; Start 10/26/16 at 12: 00 Ferrous Sulfate (Ferrous Sulfate (Ec)) 325 mg BID PO Last administered on 08:23; Admin Dose 325 MG; Start 10/26/16 at 21:00 Metoprolol Tartrate (Lopressor) 50 mg BID PO Last administered on 10/27/16 08: 23; Admin Dose 50 MG; Start 10/26/16 at 21:00 Rivaroxaban (Xarelto) 20 mg DAILY PO ; Start 10/26/16 at 18:00; Status Future Hold Senna (Senokot) 1 tab DAILY PO Last administered on 10/27/16 08:23; Admin Dose 1 TAB; Start 10/27/16 at 09:00 Ondansetron HCl (Zofran Inj) 4 mg Q6H PRN IV NAUSEA AND/OR VOMITING; Start at 12:00 Nitroglycerin (Nitroglycerin (Sl Tab) 0.4 Mg) 1 tab Q5M PRN SL CHEST PAIN; Start 10/26/16 at 12:00 Acetaminophen (Tylenol Tab) 650 mg Q6H PRN PO PAIN LEVEL 1-3 OR FEVER; Start at 12:00 Acetaminophen (Tylenol Supp) 650 mg Q4H PRN [place] PAIN LEVEL 1-3 OR FEVER; Start 10/26/16 at 12:00 Morphine Sulfate (morphine) 1 mg Q4H PRN IV PAIN LEVEL 7-10; Start 10/26/16 at 12:00 Lorazepam (Ativan) 1 mg Q2H PRN IV ANXIETY; Start 10/26/16 at 12:00 Pantoprazole 40 mg 40 mg DAILY@06 IV Last administered on 10/27/16 06:05; Admin Dose 40 MG; Start 10/27/16 at 06:00 Cefepime HCl (Maxipime 1gm/50 ml (Pmx)) 50 ml @ 100 mls/hr Q12 IVPB Last administered on 10/27/16 08:22; Admin Dose 100 MLS/HR; Start 10/26/16 at 21:00 Insulin Glargine (Lantus) 10 unit QPM SC Last administered on 10/26/16 22:46; Admin Dose 10 UNIT; Start 10/26/16 at 21:00 Miscellaneous Information 1 ea NOTE XX ; Start 10/26/16 at 15:30 Glucose (Glutose) 15 gm Q15M PRN PO DECREASED GLUCOSE; Start 10/26/16 at 15:30 Glucose (Glutose) 22.5 gm Q15M PRN PO DECREASED GLUCOSE; Start 10/26/16 at 15: 30 Dextrose (D50w Syringe) 25 ml Q15M PRN IV DECREASED GLUCOSE; Start 10/26/16 at 15:30 Dextrose (D50w Syringe) 50 ml Q15M PRN IV DECREASED GLUCOSE; Start 10/26/16 at 15:30 Glucagon (Glucagen) 1 mg Q15M PRN IM DECREASED GLUCOSE; Start 10/26/16 at 15:30 Glucose 15 gm 15 gm Q15M PRN BUCCAL DECREASED GLUCOSE; Start 10/26/16 at 15:30 Vancomycin HCl (Vancocin) 250 ml @ 125 mls/hr Q24H IVPB Last administered on 10:41; Admin Dose 125 MLS/HR; Start 10/27/16 at 10:00 IV Flush (NS 10 ml) 10 ml PRN PRN IV IV PROTOCOL; Start 10/26/16 at 18:00 Atorvastatin Calcium (Lipitor) 80 mg HS PO ; Start 10/27/16 at 21:00 Labetalol HCl (Labetalol) 10 mg Q4 PRN IV SBP>150; Start 10/26/16 at 23:30 Methylprednisolone Sodium Succinate (Solu-Medrol) 40 mg Q12 IV ; Start 10/27/16 at 21:00 CHICHI HOLLY MD Oct 27, 2016 19:49
[2016-10-27] MEDS: ACETAMINOPHEN 325 MG TAB PO PRN (20:56)
[2016-10-27] MEDS: ATORVASTATIN 80 MG TAB PO SCH (20:56)
[2016-10-27] MEDS: METHYLPREDNISOLONE 40 MG INJ IV SCH (20:56)
[2016-10-27] MEDS: LORAZEPAM 2 MG INJ IV PRN (20:57)
[2016-10-27] MEDS: INSULIN GLARGINE [LANtus] 3 ML PEN SC SCH (21:13)
[2016-10-28] VITALS (11 sets, daily range): BP systolic 119–156; BP diastolic 56–70; PULSE 63–86; RESP 17–20
[2016-10-28] MEDS: IPRATROPIUM (NEB) 0.5 MG/2.5 ML AMP NEB SCH ×6 (00:21→21:00)
[2016-10-28] MEDS: ALBUTEROL 0.5% (NEB) 2.5 MG/0.5 ML AMP NEB SCH ×6 (00:21→21:00)
[2016-10-28] MEDS: PANTOPRAZOLE 40 MG INJ IV SCH (06:00)
[2016-10-28] MEDS: ACETAMINOPHEN 325 MG TAB PO PRN (06:37)
[2016-10-28 07:21] LABS: POTASSIUM 5.5 mmol/L (3.5-5.1)
[2016-10-28 07:23] LABS: CREATININE 0.95 mg/dl (0.44-1.00)
[2016-10-28 07:24] LABS: CALCIUM 8.3 mg/dl (8.4-10.2); MAGNESIUM 2.3 mg/dl (1.7-2.5)
[2016-10-28 07:25] LABS: HEMATOCRIT 28.3 % (37.0-47.0); LYMPHOCYTES # 0.5 10^3/ul (0.8-2.9); LYMPHOCYTES % 4.3 % (15.0-51.0); MEAN CORPUSCULAR HEMOGLOBIN 30.2 pg (29.0-33.0); MEAN CORPUSCULAR HGB CONC 35.5 g/dl (32.0-37.0); MEAN CORPUSCULAR VOLUME 85.3 fl (82.0-101.0); MEAN PLATELET VOLUME 8.4 fl (7.4-10.4); MONOCYTE # 0.3 10^3/ul (0.3-0.9); MONOCYTES % 2.9 % (0.0-11.0); NEUTROPHIL # 10.6 10^3/ul (1.6-7.5); NEUTROPHILS % 92.8 % (39.0-77.0); PLATELET COUNT 175 10^3/UL (140-440); RED BLOOD COUNT 3.32 10^6/ul (4.20-5.40); UNCORRECTED WBC 11.5 10^3/ul (4.8-10.8); WHITE BLOOD COUNT 11.5 10^3/ul (4.8-10.8)
[2016-10-28 07:31] LABS: CONDITION 1; LH ANALYZER COMMENTS 1
[2016-10-28] MEDS: LORAZEPAM 2 MG INJ IV PRN ×2 (08:00→23:01)
[2016-10-28] MEDS: METHYLPREDNISOLONE 40 MG INJ IV SCH ×2 (08:15→21:14)
[2016-10-28] MEDS: FERROUS SULFATE (EC) 325 MG TAB PO SCH ×2 (08:17→21:15)
[2016-10-28] MEDS: SENNA TAB PO SCH (08:17)
[2016-10-28] MEDS: ASPIRIN 81 MG TAB PO SCH (08:17)
[2016-10-28] MEDS: METOPROLOL 50 MG TAB PO SCH ×2 (08:17→21:15)
[2016-10-28] MEDS: CLOPIDOGREL 75 MG TAB PO SCH (08:17)
[2016-10-28] MEDS: CEFEPIME 1GM/50 ML (PMX) 50 ML IVPB SCH ×2 (08:18→21:14)
[2016-10-28] MEDS: INSULIN ASPART [NOVOLOG] 3 ML PEN SC SCH ×4 (08:23→21:33)
[2016-10-28] MEDS: HEPARIN 25000 UNITS/250 ML 250 ML IV SCH ×2 (10:15→21:14)
--- NOTE | 2016-10-28 10:20 | PN ---
Date/Time of Note Date/Time of Note DATE: 10/28/16 TIME: 10:17 Assessment/Plan VTE Prophylaxis VTE Prophylaxis Intervention: SCD's Lines/Catheters [facility] PICC Line Central line still needed: Yes Urinary Cath still in place: Yes Reason Cath still needed: other (indicate) Assessment/Plan Chief Complaint/Hosp Course ASSESSMENT AND PLAN: 1. Acute respiratory failure, status post BiPAP , stable on nasal cannula Pulmonology has been consulted. Has been placed on Solu-Medrol, breathing treatment. 2. Non-ST myocardial infarction. Cardiology has been consulted. Continue aspirin and Plavix. Status post heparin drip. At this time, the patient's daughter will decide regarding to proceed with left heart catheterization procedure. Continue aggressive medical management 3. History of coronary artery disease status post quadruple bypass. Continue medical management. 4. Essential hypertension, well controlled on medical management at this time. 5. SIRS secondary to multifocal pneumonia, on cefepime and vancomycin. 6. Diabetes mellitus on insulin sliding scale and Lantus. 7. Multifocal pneumonia, on cefepime and vancomycin. Pulmonology and ID has been consulted. 8. For deep venous thrombosis prophylaxis, on heparin drip, hold Xarelto 9. For gastrointestinal prophylaxis, on proton pump inhibitor. as per patient's daughter recommendation and wishes. Patient is DNR. Will continue to monitor patient closely for further recommendations, management, and treatment as per clinical course. Plan to discharge to [facility] facility tomorrow Problems: Subjective 24 Hr Interval Summary Free Text/Dictation Patient is awake although mildly groggy slight secondary to BENZO Minimal by mouth intake Exam/Review of Systems Vital Signs Vitals Vital Signs Date Time Temp Pulse Resp B/P Pulse Ox O2 Delivery O2 Flow Rate FiO2 10/28/16 08:54 68 10/28/16 07:57 98.1 18 135/62 97 10/28/16 04:10 Nasal Cannula 2.0 28 Intake and Output 10/27/16 10/27/16 10/28/16 15:00 23:00 07:00 Intake Total 753.5 ml 120 ml Output Total 360 ml 30 ml Balance 393.5 ml 90 ml Exam General: The patient is well-developed, Not in acute distress. HEENT: Atraumatic, normocephalic. The pupils are equal and round . Neck: Supple with full range of motion. Chest: Normal expansion of the thorax during inspiration Lungs: Decreased breath sounds bilateral lower lung field Heart: Normal S1-S2, Regular rhythm and rate.3/6 systolic murmur at the apex Abdomen: Soft , nontender, nondistended , bowel sounds are present. Extremities: Normal to inspection, no edema no cyanosis Neurologic: The patient is awake, Results Result Diagram: 10/28/16 0550 10/28/16 0550 Results 24 hrs Laboratory Tests Test 10/27/16 12:04 10/27/16 15:20 10/27/16 16:58 10/27/16 20:37 Bedside Glucose 293 H 306 H 261 H Activated Partial Thromboplast Time 62.1 H Test 10/28/16 05:50 10/28/16 08:03 Activated Partial Thromboplast Time 31.7 Anion Gap 17 H Basophils # Pending Basophils % Pending Blood Urea Nitrogen 37 #H Calcium Level 8.3 L Carbon Dioxide Level 25 Chloride Level 104 Creatinine 0.95 Eosinophils # Pending Eosinophils % Pending Glucose Level 319 H Hematocrit 28.3 L Hemoglobin 10.0 L Lymphocytes # Pending Lymphocytes % Pending Magnesium Level 2.3 Mean Corpuscular Hemoglobin 30.2 Mean Corpuscular Hemoglobin Concent 35.5 Mean Corpuscular Volume 85.3 Mean Platelet Volume 8.4 Monocytes # Pending Monocytes % Pending Neutrophils # Pending Neutrophils % Pending Nucleated Red Blood Cells # Pending Nucleated Red Blood Cells % Pending Platelet Count 175 Potassium Level 5.5 H Red Blood Count 3.32 L Red Cell Distribution Width 14.0 Sodium Level 140 White Blood Count 11.5 H Bedside Glucose 339 H Medications Medications Current Medications Aspirin (Aspirin) 81 mg DAILY PO Last administered on 10/28/16 08:17; Admin Dose 81 MG; Start 10/27/16 at 09:00 Clopidogrel Bisulfate (plaVIX) 75 mg DAILY PO Last administered on 10/28/16 08 :17; Admin Dose 75 MG; Start 10/26/16 at 16:00 Digoxin (Digoxin) 0.125 mg DAILY@13 PO ; Start 10/26/16 at 16:00 Docusate Sodium (Colace) 100 mg BID PRN PO CONSTIPATION; Start 10/26/16 at 12: 00 Ferrous Sulfate (Ferrous Sulfate (Ec)) 325 mg BID PO Last administered on 08:17; Admin Dose 325 MG; Start 10/26/16 at 21:00 Metoprolol Tartrate (Lopressor) 50 mg BID PO Last administered on 10/28/16 08: 17; Admin Dose 50 MG; Start 10/26/16 at 21:00 Rivaroxaban (Xarelto) 20 mg DAILY PO ; Start 10/26/16 at 18:00; Status Future Hold Senna (Senokot) 1 tab DAILY PO Last administered on 10/28/16 08:17; Admin Dose 1 TAB; Start 10/27/16 at 09:00 Ondansetron HCl (Zofran Inj) 4 mg Q6H PRN IV NAUSEA AND/OR VOMITING; Start at 12:00 Nitroglycerin (Nitroglycerin (Sl Tab) 0.4 Mg) 1 tab Q5M PRN SL CHEST PAIN; Start 10/26/16 at 12:00 Acetaminophen (Tylenol Tab) 650 mg Q6H PRN PO PAIN LEVEL 1-3 OR FEVER Last administered on 10/28/16 06:37; Admin Dose 650 MG; Start 10/26/16 at 12:00 Acetaminophen (Tylenol Supp) 650 mg Q4H PRN [place] PAIN LEVEL 1-3 OR FEVER; Start 10/26/16 at 12:00 Morphine Sulfate (morphine) 1 mg Q4H PRN IV PAIN LEVEL 7-10; Start 10/26/16 at 12:00 Lorazepam (Ativan) 1 mg Q2H PRN IV ANXIETY Last administered on 10/28/16 08:00 ; Admin Dose 1 MG; Start 10/26/16 at 12:00 Pantoprazole 40 mg 40 mg DAILY@06 IV Last administered on 10/28/16 06:00; Admin Dose 40 MG; Start 10/27/16 at 06:00 Cefepime HCl (Maxipime 1gm/50 ml (Pmx)) 50 ml @ 100 mls/hr Q12 IVPB Last administered on 10/28/16 08:18; Admin Dose 100 MLS/HR; Start 10/26/16 at 21:00 Miscellaneous Information 1 ea NOTE XX ; Start 10/26/16 at 15:30 Glucose (Glutose) 15 gm Q15M PRN PO DECREASED GLUCOSE; Start 10/26/16 at 15:30 Glucose (Glutose) 22.5 gm Q15M PRN PO DECREASED GLUCOSE; Start 10/26/16 at 15: 30 Dextrose (D50w Syringe) 25 ml Q15M PRN IV DECREASED GLUCOSE; Start 10/26/16 at 15:30 Dextrose (D50w Syringe) 50 ml Q15M PRN IV DECREASED GLUCOSE; Start 10/26/16 at 15:30 Glucagon (Glucagen) 1 mg Q15M PRN IM DECREASED GLUCOSE; Start 10/26/16 at 15:30 Glucose 15 gm 15 gm Q15M PRN BUCCAL DECREASED GLUCOSE; Start 10/26/16 at 15:30 Vancomycin HCl (Vancocin) 250 ml @ 125 mls/hr Q24H IVPB Last administered on 10:41; Admin Dose 125 MLS/HR; Start 10/27/16 at 10:00 IV Flush (NS 10 ml) 10 ml PRN PRN IV IV PROTOCOL; Start 10/26/16 at 18:00 Atorvastatin Calcium (Lipitor) 80 mg HS PO Last administered on 10/27/16 20:56 ; Admin Dose 80 MG; Start 10/27/16 at 21:00 Labetalol HCl (Labetalol) 10 mg Q4 PRN IV SBP>150; Start 10/26/16 at 23:30 Methylprednisolone Sodium Succinate (Solu-Medrol) 40 mg Q12 IV Last administered on 10/28/16 08:15; Admin Dose 40 MG; Start 10/27/16 at 21:00 Insulin Glargine (Lantus) 12 unit QPM SC ; Start 10/28/16 at 21:00 Insulin Human NPH (Humulin N) 8 unit Q12H SC ; Start 10/28/16 at 10:00; Status AXEL YANEZ MD Oct 28, 2016 10:20
[2016-10-28 11:02] LABS: ANISOCYTOSIS 1+; POIKILOCYTOSIS 1+
[2016-10-28 11:03] LABS: OVALOCYTES FEW
[2016-10-28] MEDS: VANCOMYCIN 1 GM in NS 250 ML IVPB SCH (11:07)
[2016-10-28] MEDS: NPH, HUMAN INSULIN ISOPHANE 3ML VIAL SC SCH ×2 (12:06→21:32)
[2016-10-28] MEDS: DIGOXIN 0.125 MG TAB PO SCH (13:00)
--- NOTE | 2016-10-28 15:36 | CONS ---
Date/Time of Note Date/Time of Note DATE: 10/28/16 TIME: 15:34 Assessment/Plan Assessment/Plan Chief Complaint/Hosp Course Assessment: NSTEMI Coronary artery disease - history of CABG, history of PCI in 2016 (details unknown) Acute on chronic diastolic heart failure - improved with gentle diuresis Severe aortic stenosis - refused valve replacement in the past Acute hypoxic respiratory failure - off BiPAP, on face mask Bilateral pneumonia Possible paroxysmal atrial fibrillation - currently sinus rhythm Hypertension Dyslipidemia Diabetes mellitus Recommendations: -echocardiogram showed LVEF 50-55%, moderate LVH, severe aortic stenosis -discontinue heparin drip, status post 48 hours -continue aspirin 81mg and clopidogrel 75mg daily -stay off Xarelto, unclear indication - defer to outpatient dietary worker -digoxin discontinued due to bradycardia -continue metoprolol 50mg BID, as heart rate can tolerate -continue atorvastatin 80mg daily -discussed with patient's two daughters - they would like to pursue conservative management of NSTEMI and declines coronary angiography, which seems to be reasonable in an elderly patient with dementia and preserved LVEF Problems: Consultation Date/Type/Reason Admit Date/Time Oct 26, 2016 at 10:22 Initial Consult Date 10/26/16 Type of Consultation: Cardiology 24 HR Interval Summary Free Text/Dictation No acute events. Patient confused. Detailed Summary Additional Comments Unable to obtain review of systems due to patient's mental status. Exam/Review of Systems Vital Signs Vitals Vital Signs Date Time Temp Pulse Resp B/P Pulse Ox O2 Delivery O2 Flow Rate FiO2 10/28/16 13:07 96 2.0 10/28/16 13:06 78 20 Nasal Cannula 10/28/16 11:55 98.3 156/70 10/28/16 04:10 28 Intake and Output 10/27/16 10/27/16 10/28/16 15:00 23:00 07:00 Intake Total 753.5 ml 120 ml Output Total 360 ml 30 ml Balance 393.5 ml 90 ml Exam Constitutional: No distress Psych: confusion Head: atraumatic, normocephalic Eyes: nl conjunctiva, nl lids ENMT: nl external ears & nose, nl nasal mucosa & septum Neck: non-tender, supple Respiratory: crackles/rales, diminished breath sounds Cardiovascular: regular rate and rhythm, systolic murmur Gastrointestinal: non-tender, soft Musculoskeletal: nl extremities to inspection Extremities: edema, No clubbing, No cyanosis Neurological: No nl mental status, No nl speech Results Result Diagram: 10/28/16 0550 10/28/16 0550 Results 24 hrs Laboratory Tests Test 10/27/16 16:58 10/27/16 20:37 10/28/16 05:50 10/28/16 08:03 Bedside Glucose 306 H 261 H 339 H Activated Partial Thromboplast Time 31.7 Anion Gap 17 H Anisocytosis 1+ Basophils # 0.0 Basophils % 0.0 Blood Urea Nitrogen 37 #H Calcium Level 8.3 L Carbon Dioxide Level 25 Chloride Level 104 Creatinine 0.95 Eosinophils # 0.0 Eosinophils % 0.0 Glucose Level 319 H Hematocrit 28.3 L Hemoglobin 10.0 L Lymphocytes # 0.5 L Lymphocytes % 4.3 L Magnesium Level 2.3 Mean Corpuscular Hemoglobin 30.2 Mean Corpuscular Hemoglobin Concent 35.5 Mean Corpuscular Volume 85.3 Mean Platelet Volume 8.4 Monocytes # 0.3 Monocytes % 2.9 Neutrophils # 10.6 H Neutrophils % 92.8 H Nucleated Red Blood Cells # 0.0 Nucleated Red Blood Cells % 0.0 Ovalocytes FEW Platelet Count 175 Potassium Level 5.5 H Red Blood Count 3.32 L Red Cell Distribution Width 14.0 Sodium Level 140 White Blood Count 11.5 H Test 10/28/16 11:03 Bedside Glucose 305 H Medications Medications Current Medications Aspirin (Aspirin) 81 mg DAILY PO Last administered on 10/28/16 08:17; Admin Dose 81 MG; Start 10/27/16 at 09:00 Clopidogrel Bisulfate (plaVIX) 75 mg DAILY PO Last administered on 10/28/16 08 :17; Admin Dose 75 MG; Start 10/26/16 at 16:00 Digoxin (Digoxin) 0.125 mg DAILY@13 PO ; Start 10/26/16 at 16:00 Docusate Sodium (Colace) 100 mg BID PRN PO CONSTIPATION; Start 10/26/16 at 12: 00 Ferrous Sulfate (Ferrous Sulfate (Ec)) 325 mg BID PO Last administered on 08:17; Admin Dose 325 MG; Start 10/26/16 at 21:00 Metoprolol Tartrate (Lopressor) 50 mg BID PO Last administered on 10/28/16 08: 17; Admin Dose 50 MG; Start 10/26/16 at 21:00 Rivaroxaban (Xarelto) 20 mg DAILY PO ; Start 10/26/16 at 18:00; Status Future Hold Senna (Senokot) 1 tab DAILY PO Last administered on 10/28/16 08:17; Admin Dose 1 TAB; Start 10/27/16 at 09:00 Ondansetron HCl (Zofran Inj) 4 mg Q6H PRN IV NAUSEA AND/OR VOMITING; Start at 12:00 Nitroglycerin (Nitroglycerin (Sl Tab) 0.4 Mg) 1 tab Q5M PRN SL CHEST PAIN; Start 10/26/16 at 12:00 Acetaminophen (Tylenol Tab) 650 mg Q6H PRN PO PAIN LEVEL 1-3 OR FEVER Last administered on 10/28/16 06:37; Admin Dose 650 MG; Start 10/26/16 at 12:00 Acetaminophen (Tylenol Supp) 650 mg Q4H PRN [place] PAIN LEVEL 1-3 OR FEVER; Start 10/26/16 at 12:00 Morphine Sulfate (morphine) 1 mg Q4H PRN IV PAIN LEVEL 7-10; Start 10/26/16 at 12:00 Lorazepam (Ativan) 1 mg Q2H PRN IV ANXIETY Last administered on 10/28/16 08:00 ; Admin Dose 1 MG; Start 10/26/16 at 12:00 Pantoprazole 40 mg 40 mg DAILY@06 IV Last administered on 10/28/16 06:00; Admin Dose 40 MG; Start 10/27/16 at 06:00 Cefepime HCl (Maxipime 1gm/50 ml (Pmx)) 50 ml @ 100 mls/hr Q12 IVPB Last administered on 10/28/16 08:18; Admin Dose 100 MLS/HR; Start 10/26/16 at 21:00 Miscellaneous Information 1 ea NOTE XX ; Start 10/26/16 at 15:30 Glucose (Glutose) 15 gm Q15M PRN PO DECREASED GLUCOSE; Start 10/26/16 at 15:30 Glucose (Glutose) 22.5 gm Q15M PRN PO DECREASED GLUCOSE; Start 10/26/16 at 15: 30 Dextrose (D50w Syringe) 25 ml Q15M PRN IV DECREASED GLUCOSE; Start 10/26/16 at 15:30 Dextrose (D50w Syringe) 50 ml Q15M PRN IV DECREASED GLUCOSE; Start 10/26/16 at 15:30 Glucagon (Glucagen) 1 mg Q15M PRN IM DECREASED GLUCOSE; Start 10/26/16 at 15:30 Glucose 15 gm 15 gm Q15M PRN BUCCAL DECREASED GLUCOSE; Start 10/26/16 at 15:30 Vancomycin HCl (Vancocin) 250 ml @ 125 mls/hr Q24H IVPB Last administered on 11:07; Admin Dose 125 MLS/HR; Start 10/27/16 at 10:00 IV Flush (NS 10 ml) 10 ml PRN PRN IV IV PROTOCOL; Start 10/26/16 at 18:00 Atorvastatin Calcium (Lipitor) 80 mg HS PO Last administered on 10/27/16 20:56 ; Admin Dose 80 MG; Start 10/27/16 at 21:00 Labetalol HCl (Labetalol) 10 mg Q4 PRN IV SBP>150; Start 10/26/16 at 23:30 Methylprednisolone Sodium Succinate (Solu-Medrol) 40 mg Q12 IV Last administered on 10/28/16 08:15; Admin Dose 40 MG; Start 10/27/16 at 21:00 Insulin Glargine (Lantus) 12 unit QPM SC ; Start 10/28/16 at 21:00 Insulin Human NPH (Humulin N) 8 unit Q12 SC Last administered on 10/28/16 12: 06; Admin Dose 8 UNIT; Start 10/28/16 at 11:00 Miscellaneous Information (*Rx Drug Level Order Reminder*) VANCOMYCIN TROUGH AT 0900 ONCE ONCE XX ; Start 10/29/16 at 09:00; Stop 10/29/16 at 09:01 CHICHI HOLLY MD Oct 28, 2016 15:36
--- NOTE | 2016-10-28 17:51 | CONS ---
Date/Time of Note Date/Time of Note DATE: 10/28/16 TIME: 17:49 Consult Date/Type/Reason Admit Date/Time Oct 26, 2016 at 10:22 Initial Consult Date 10/26/16 Type of Consultation: Pulm Subjective No events. Objective Vital Signs Date Time Temp Pulse Resp B/P Pulse Ox O2 Delivery O2 Flow Rate FiO2 10/28/16 17:33 95 2.0 10/28/16 17:32 76 20 Nasal Cannula 10/28/16 16:20 98.4 156/67 10/28/16 04:10 28 Intake and Output 10/27/16 10/27/16 10/28/16 15:00 23:00 07:00 Intake Total 753.5 ml 120 ml Output Total 360 ml 30 ml Balance 393.5 ml 90 ml HEENT: Neck supple; + JVD; no LAD CVS: RRR, III/ sys murmur CHEST: basilar rales ABD: Soft, NT, + BS EXT: No c/c/ +edema Results/Medications Result Diagram: 10/28/16 0550 10/28/16 0550 Results 24 hrs Laboratory Tests Test 10/27/16 20:37 10/28/16 05:50 10/28/16 08:03 10/28/16 11:03 Bedside Glucose 261 H 339 H 305 H Activated Partial Thromboplast Time 31.7 Anion Gap 17 H Anisocytosis 1+ Basophils # 0.0 Basophils % 0.0 Blood Urea Nitrogen 37 #H Calcium Level 8.3 L Carbon Dioxide Level 25 Chloride Level 104 Creatinine 0.95 Eosinophils # 0.0 Eosinophils % 0.0 Glucose Level 319 H Hematocrit 28.3 L Hemoglobin 10.0 L Lymphocytes # 0.5 L Lymphocytes % 4.3 L Magnesium Level 2.3 Mean Corpuscular Hemoglobin 30.2 Mean Corpuscular Hemoglobin Concent 35.5 Mean Corpuscular Volume 85.3 Mean Platelet Volume 8.4 Monocytes # 0.3 Monocytes % 2.9 Neutrophils # 10.6 H Neutrophils % 92.8 H Nucleated Red Blood Cells # 0.0 Nucleated Red Blood Cells % 0.0 Ovalocytes FEW Platelet Count 175 Potassium Level 5.5 H Red Blood Count 3.32 L Red Cell Distribution Width 14.0 Sodium Level 140 White Blood Count 11.5 H Test 10/28/16 17:22 Bedside Glucose 309 H Medications Current Medications Aspirin (Aspirin) 81 mg DAILY PO Last administered on 10/28/16 08:17; Admin Dose 81 MG; Start 10/27/16 at 09:00 Clopidogrel Bisulfate (plaVIX) 75 mg DAILY PO Last administered on 10/28/16 08 :17; Admin Dose 75 MG; Start 10/26/16 at 16:00 Digoxin (Digoxin) 0.125 mg DAILY@13 PO ; Start 10/26/16 at 16:00 Docusate Sodium (Colace) 100 mg BID PRN PO CONSTIPATION; Start 10/26/16 at 12: 00 Ferrous Sulfate (Ferrous Sulfate (Ec)) 325 mg BID PO Last administered on 08:17; Admin Dose 325 MG; Start 10/26/16 at 21:00 Metoprolol Tartrate (Lopressor) 50 mg BID PO Last administered on 10/28/16 08: 17; Admin Dose 50 MG; Start 10/26/16 at 21:00 Rivaroxaban (Xarelto) 20 mg DAILY PO ; Start 10/26/16 at 18:00; Status Future Hold Senna (Senokot) 1 tab DAILY PO Last administered on 10/28/16 08:17; Admin Dose 1 TAB; Start 10/27/16 at 09:00 Ondansetron HCl (Zofran Inj) 4 mg Q6H PRN IV NAUSEA AND/OR VOMITING; Start at 12:00 Nitroglycerin (Nitroglycerin (Sl Tab) 0.4 Mg) 1 tab Q5M PRN SL CHEST PAIN; Start 10/26/16 at 12:00 Acetaminophen (Tylenol Tab) 650 mg Q6H PRN PO PAIN LEVEL 1-3 OR FEVER Last administered on 10/28/16 06:37; Admin Dose 650 MG; Start 10/26/16 at 12:00 Acetaminophen (Tylenol Supp) 650 mg Q4H PRN CO PAIN LEVEL 1-3 OR FEVER; Start 10/26/16 at 12:00 Morphine Sulfate (morphine) 1 mg Q4H PRN IV PAIN LEVEL 7-10; Start 10/26/16 at 12:00 Lorazepam 1 mg 1 mg Q2H PRN IV ANXIETY Last administered on 10/28/16 08:00; Admin Dose 1 MG; Start 10/26/16 at 12:00 Cefepime HCl (Maxipime 1gm/50 ml (Pmx)) 50 ml @ 100 mls/hr Q12 IVPB Last administered on 10/28/16 08:18; Admin Dose 100 MLS/HR; Start 10/26/16 at 21:00 Miscellaneous Information 1 ea NOTE XX ; Start 10/26/16 at 15:30 Glucose (Glutose) 15 gm Q15M PRN PO DECREASED GLUCOSE; Start 10/26/16 at 15:30 Glucose (Glutose) 22.5 gm Q15M PRN PO DECREASED GLUCOSE; Start 10/26/16 at 15: 30 Dextrose (D50w Syringe) 25 ml Q15M PRN IV DECREASED GLUCOSE; Start 10/26/16 at 15:30 Dextrose (D50w Syringe) 50 ml Q15M PRN IV DECREASED GLUCOSE; Start 10/26/16 at 15:30 Glucagon (Glucagen) 1 mg Q15M PRN IM DECREASED GLUCOSE; Start 10/26/16 at 15:30 Glucose 15 gm 15 gm Q15M PRN BUCCAL DECREASED GLUCOSE; Start 10/26/16 at 15:30 Vancomycin HCl (Vancocin) 250 ml @ 125 mls/hr Q24H IVPB Last administered on 11:07; Admin Dose 125 MLS/HR; Start 10/27/16 at 10:00 IV Flush (NS 10 ml) 10 ml PRN PRN IV IV PROTOCOL; Start 10/26/16 at 18:00 Atorvastatin Calcium (Lipitor) 80 mg HS PO Last administered on 10/27/16 20:56 ; Admin Dose 80 MG; Start 10/27/16 at 21:00 Labetalol HCl (Labetalol) 10 mg Q4 PRN IV SBP>150; Start 10/26/16 at 23:30 Methylprednisolone Sodium Succinate (Solu-Medrol) 40 mg Q12 IV Last administered on 10/28/16 08:15; Admin Dose 40 MG; Start 10/27/16 at 21:00 Insulin Glargine (Lantus) 12 unit QPM SC ; Start 10/28/16 at 21:00 Insulin Human NPH (Humulin N) 8 unit Q12 SC Last administered on 10/28/16 12: 06; Admin Dose 8 UNIT; Start 10/28/16 at 11:00 Miscellaneous Information (*Rx Drug Level Order Reminder*) VANCOMYCIN TROUGH 1/ 29 AT 0900 ONCE ONCE XX ; Start 10/29/16 at 09:00; Stop 10/29/16 at 09:01 Pantoprazole (Protonix Tab) 40 mg DAILY@06 PO ; Start 10/29/16 at 06:00 Assessment/Plan Additional Assessment/Plan IMP: 1. Respiratory Insufficiency 2. CHF 3. NSTEMI 4. RECS: 1. Management per cards 2. Am CXR 3. De-escalate abx ELIZABETH BLOUNT MD Oct 28, 2016 17:51
[2016-10-28] MEDS: ATORVASTATIN 80 MG TAB PO SCH (21:15)
[2016-10-28] MEDS: INSULIN GLARGINE [LANtus] 3 ML PEN SC SCH (21:32)
[2016-10-29] VITALS (13 sets, daily range): BP systolic 126–186; BP diastolic 61–81; PULSE 74–92; RESP 19–21
[2016-10-29] MEDS: IPRATROPIUM (NEB) 0.5 MG/2.5 ML AMP NEB SCH ×6 (01:20→21:56)
[2016-10-29] MEDS: ALBUTEROL 0.5% (NEB) 2.5 MG/0.5 ML AMP NEB SCH ×6 (01:20→21:56)
[2016-10-29] MEDS: HEPARIN 25000 UNITS/250 ML 250 ML IV SCH (04:31)
[2016-10-29 04:44] LABS: RED BLOOD COUNT 3.38 10^6/ul (4.20-5.40); UNCORRECTED WBC 14.9 10^3/ul (4.8-10.8); WHITE BLOOD COUNT 14.9 10^3/ul (4.8-10.8)
[2016-10-29 04:45] LABS: BASOPHILS % 0.1 % (0.0-2.0); HEMATOCRIT 29.1 % (37.0-47.0); HEMOGLOBIN 10.1 g/dl (12.0-16.0); LYMPHOCYTES # 0.5 10^3/ul (0.8-2.9); LYMPHOCYTES % 3.2 % (15.0-51.0); MEAN CORPUSCULAR HGB CONC 34.9 g/dl (32.0-37.0); MEAN PLATELET VOLUME 8.5 fl (7.4-10.4); MONOCYTE # 0.3 10^3/ul (0.3-0.9); MONOCYTES % 2.1 % (0.0-11.0); NEUTROPHIL # 14.1 10^3/ul (1.6-7.5); NEUTROPHILS % 94.6 % (39.0-77.0); PLATELET COUNT 180 10^3/UL (140-440); RED CELL DISTRIBUTION WIDTH 13.8 % (11.5-14.5)
[2016-10-29 04:49] LABS: CONDITION 1; LH ANALYZER COMMENTS 1
[2016-10-29 05:15] LABS: POTASSIUM 4.4 mmol/L (3.5-5.1)
[2016-10-29 05:18] LABS: CREATININE 0.91 mg/dl (0.44-1.00)
[2016-10-29 05:19] LABS: CALCIUM 8.8 mg/dl (8.4-10.2); MAGNESIUM 2.4 mg/dl (1.7-2.5)
[2016-10-29] MEDS: PANTOPRAZOLE (EC) 40 MG TAB PO SCH (05:51)
[2016-10-29] MEDS: INSULIN ASPART [NOVOLOG] 3 ML PEN SC SCH ×5 (07:55→21:00)
[2016-10-29] MEDS: METHYLPREDNISOLONE 40 MG INJ IV SCH ×2 (09:00→21:00)
[2016-10-29] MEDS: NPH, HUMAN INSULIN ISOPHANE 3ML VIAL SC SCH ×2 (09:12→21:25)
[2016-10-29] MEDS: METOPROLOL 50 MG TAB PO SCH ×2 (09:20→20:59)
[2016-10-29] MEDS: CLOPIDOGREL 75 MG TAB PO SCH (09:20)
[2016-10-29] MEDS: SENNA TAB PO SCH (09:20)
[2016-10-29] MEDS: FERROUS SULFATE (EC) 325 MG TAB PO SCH ×2 (09:20→20:58)
[2016-10-29] MEDS: ASPIRIN 81 MG TAB PO SCH (09:27)
[2016-10-29] MEDS: CEFEPIME 1GM/50 ML (PMX) 50 ML IVPB SCH (09:27)
--- NOTE | 2016-10-29 10:34 | PDOCDIS ---
Discharge Instructions CONDITION Patient Condition: Stable HOME CARE INSTRUCTIONS: Special Diet: CARB CONTROL ACTIVITY: Activity Restrictions: Special Program AXEL CHERRY MD Oct 29, 2016 10:34
[2016-10-29] MEDS: VANCOMYCIN 1 GM in NS 250 ML IVPB SCH (10:52)
--- NOTE | 2016-10-29 12:07 | RADRPT ---
PROCEDURE: XR Chest. CLINICAL INDICATION: CHF. TECHNIQUE: Single AP portable chest COMPARISON: 10/26/2016 FINDINGS: The cardiomediastinal silhouette is within normal limits. Right PICC line catheter stable position. Sternotomy wires in place. No interval change in extensive bilateral interstitial and alveolar air space disease greatest on the right. New small right pleural effusion. . Delete the No pneumothora x. Chronic right rib fracture and glenohumeral joint deformities. IMPRESSION: 1. Stable bilateral interstitial and alveolar air space disease. New small right pleural effusion. Pulmonary edema versus pneumonia. RPTAT:AAJJ Physician Lennox Date Time Electronically viewed and signed by Physician Lennox on 10/29/2016 12:07 ANA MARIA/
[2016-10-29] MEDS: DIGOXIN 0.125 MG TAB PO SCH (13:00)
[2016-10-29] MEDS: ACETAMINOPHEN 325 MG TAB PO PRN (16:35)
[2016-10-29] MEDS ORDERED: AMLO-147 PO (17:01)
[2016-10-29] MEDS ORDERED: LOSA25TA5 PO (17:01)
[2016-10-29] MEDS: LOSARTAN 25 MG TAB PO SCH (17:12)
--- NOTE | 2016-10-29 17:14 | CONS ---
Date/Time of Note Date/Time of Note DATE: 10/29/16 TIME: 17:12 Assessment/Plan Assessment/Plan Chief Complaint/Hosp Course Assessment: NSTEMI Coronary artery disease - history of CABG, history of PCI in 2016 (details unknown) Acute on chronic diastolic heart failure - improved with gentle diuresis Severe aortic stenosis - refused valve replacement in the past Acute hypoxic respiratory failure - improved and off BiPAP Bilateral pneumonia Possible paroxysmal atrial fibrillation - currently sinus rhythm Hypertension Dyslipidemia Diabetes mellitus Recommendations: -echocardiogram showed LVEF 50-55%, moderate LVH, severe aortic stenosis -continue aspirin 81mg and clopidogrel 75mg daily -stay off Xarelto, unclear indication - 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 Detailed Summary Additional Comments 14 point review of systems without changes. Exam/Review of Systems Vital Signs Vitals Vital Signs Date Time Temp Pulse Resp B/P Pulse Ox O2 Delivery O2 Flow Rate FiO2 10/29/16 16:16 81 10/29/16 16:09 99.6 21 171/77 97 10/29/16 14:18 2.0 10/29/16 14:17 Nasal Cannula 10/28/16 04:10 28 Intake and Output 10/28/16 10/28/16 10/29/16 15:00 23:00 07:00 Intake Total 500 ml 400 ml Output Total 600 ml 650 ml Balance -100 ml -250 ml Exam Constitutional: No distress Psych: confusion Head: atraumatic, normocephalic Eyes: nl conjunctiva, nl lids ENMT: nl external ears & nose, nl nasal mucosa & septum Neck: non-tender, supple Respiratory: crackles/rales, diminished breath sounds Cardiovascular: regular rate and rhythm, systolic murmur Gastrointestinal: non-tender, soft Musculoskeletal: nl extremities to inspection Extremities: edema, No clubbing, No cyanosis Neurological: No nl mental status, No nl speech Results Result Diagram: 10/29/16 0326 10/29/16 0326 Results 24 hrs Laboratory Tests Test 10/28/16 17:22 10/28/16 19:56 10/28/16 21:23 10/29/16 03:26 Bedside Glucose 309 H 279 H Activated Partial Thromboplast Time 95.1 *H 56.4 H Anion Gap 16 Basophils # 0.0 Basophils % 0.1 Blood Urea Nitrogen 32 H Calcium Level 8.8 Carbon Dioxide Level 24 Chloride Level 107 Creatinine 0.91 Eosinophils # 0.0 Eosinophils % 0.0 Glucose Level 176 # Hematocrit 29.1 L Hemoglobin 10.1 L Lymphocytes # 0.5 L Lymphocytes % 3.2 L Magnesium Level 2.4 Mean Corpuscular Hemoglobin 30.0 Mean Corpuscular Hemoglobin Concent 34.9 Mean Corpuscular Volume 86.0 Mean Platelet Volume 8.5 Monocytes # 0.3 Monocytes % 2.1 Neutrophils # 14.1 H Neutrophils % 94.6 H Nucleated Red Blood Cells # 0.0 Nucleated Red Blood Cells % 0.0 Platelet Count 180 Potassium Level 4.4 Red Blood Count 3.38 L Red Cell Distribution Width 13.8 Sodium Level 143 White Blood Count 14.9 #H Test 10/29/16 04:24 10/29/16 07:50 10/29/16 09:33 10/29/16 11:34 Bedside Glucose 192 219 212 Vancomycin Level Trough 9.6 L Medications Medications Current Medications Aspirin (Aspirin) 81 mg DAILY PO Last administered on 10/29/16 09:27; Admin Dose 81 MG; Start 10/27/16 at 09:00 Clopidogrel Bisulfate (plaVIX) 75 mg DAILY PO Last administered on 10/29/16 09 :20; Admin Dose 75 MG; Start 10/26/16 at 16:00 Digoxin (Digoxin) 0.125 mg DAILY@13 PO Last administered on 10/29/16 13:00; Admin Dose 0.125 MG; Start 10/26/16 at 16:00 Docusate Sodium (Colace) 100 mg BID PRN PO CONSTIPATION; Start 10/26/16 at 12: 00 Ferrous Sulfate (Ferrous Sulfate (Ec)) 325 mg BID PO Last administered on 09:20; Admin Dose 325 MG; Start 10/26/16 at 21:00 Metoprolol Tartrate (Lopressor) 50 mg BID PO Last administered on 10/29/16 09: 20; Admin Dose 50 MG; Start 10/26/16 at 21:00 Rivaroxaban (Xarelto) 20 mg DAILY PO ; Start 10/26/16 at 18:00; Status Future Hold Senna (Senokot) 1 tab DAILY PO Last administered on 10/29/16 09:20; Admin Dose 1 TAB; Start 10/27/16 at 09:00 Ondansetron HCl (Zofran Inj) 4 mg Q6H PRN IV NAUSEA AND/OR VOMITING; Start at 12:00 Nitroglycerin (Nitroglycerin (Sl Tab) 0.4 Mg) 1 tab Q5M PRN SL CHEST PAIN; Start 10/26/16 at 12:00 Acetaminophen (Tylenol Tab) 650 mg Q6H PRN PO PAIN LEVEL 1-3 OR FEVER Last administered on 10/29/16 16:35; Admin Dose 650 MG; Start 10/26/16 at 12:00 Acetaminophen (Tylenol Supp) 650 mg Q4H PRN ME PAIN LEVEL 1-3 OR FEVER; Start 10/26/16 at 12:00 Morphine Sulfate (morphine) 1 mg Q4H PRN IV PAIN LEVEL 7-10; Start 10/26/16 at 12:00 Lorazepam (Ativan) 1 mg Q2H PRN IV ANXIETY Last administered on 10/28/16 23:01 ; Admin Dose 1 MG; Start 10/26/16 at 12:00 Miscellaneous Information 1 ea NOTE XX ; Start 10/26/16 at 15:30 Glucose (Glutose) 15 gm Q15M PRN PO DECREASED GLUCOSE; Start 10/26/16 at 15:30 Glucose (Glutose) 22.5 gm Q15M PRN PO DECREASED GLUCOSE; Start 10/26/16 at 15: 30 Dextrose (D50w Syringe) 25 ml Q15M PRN IV DECREASED GLUCOSE; Start 10/26/16 at 15:30 Dextrose (D50w Syringe) 50 ml Q15M PRN IV DECREASED GLUCOSE; Start 10/26/16 at 15:30 Glucagon (Glucagen) 1 mg Q15M PRN IM DECREASED GLUCOSE; Start 10/26/16 at 15:30 Glucose 15 gm 15 gm Q15M PRN BUCCAL DECREASED GLUCOSE; Start 10/26/16 at 15:30 Vancomycin HCl (Vancocin) 250 ml @ 125 mls/hr Q24H IVPB Last administered on 10:52; Admin Dose 125 MLS/HR; Start 10/27/16 at 10:00; Stop 10/29/16 at 19:00 IV Flush (NS 10 ml) 10 ml PRN PRN IV IV PROTOCOL; Start 10/26/16 at 18:00 Atorvastatin Calcium (Lipitor) 80 mg HS PO Last administered on 10/28/16 21:15 ; Admin Dose 80 MG; Start 10/27/16 at 21:00 Labetalol HCl (Labetalol) 10 mg Q4 PRN IV SBP>150 Last administered on 15:42; Admin Dose 10 MG; Start 10/26/16 at 23:30 Methylprednisolone Sodium Succinate (Solu-Medrol) 40 mg Q12 IV Last administered on 10/28/16 21:14; Admin Dose 40 MG; Start 10/27/16 at 21:00 Insulin Glargine (Lantus) 12 unit QPM SC Last administered on 10/28/16 21:32; Admin Dose 12 UNIT; Start 10/28/16 at 21:00 Insulin Human NPH (Humulin N) 8 unit Q12 SC Last administered on 10/29/16 09: 12; Admin Dose 8 UNIT; Start 10/28/16 at 11:00 Pantoprazole 40 mg 40 mg DAILY@06 PO Last administered on 10/29/16 05:51; Admin Dose 40 MG; Start 10/29/16 at 06:00 Cefepime HCl 50 ml @ 100 mls/hr Q24H IVPB ; Start 10/30/16 at 09:00 Vancomycin HCl/ Sodium Chloride (Vancocin/NS) 250 ml @ 83.333 mls/ hr Q24H IVPB ; Start 10/30/16 at 10:00 Losartan Potassium (Cozaar) 25 mg DAILY PO ; Start 10/29/16 at 17:00 CHICHI HOLLY MD Oct 29, 2016 17:14
--- NOTE | 2016-10-29 17:39 | CONS ---
Date/Time of Note Date/Time of Note DATE: 10/29/16 TIME: 17:36 Consult Date/Type/Reason Admit Date/Time Oct 26, 2016 at 10:22 Initial Consult Date 10/26/16 Type of Consultation: pulm Subjective No events. Objective Vital Signs Date Time Temp Pulse Resp B/P Pulse Ox O2 Delivery O2 Flow Rate FiO2 10/29/16 17:20 92 2.0 10/29/16 17:19 81 20 Nasal Cannula 10/29/16 16:09 99.6 171/77 10/28/16 04:10 28 Intake and Output 10/28/16 10/28/16 10/29/16 15:00 23:00 07:00 Intake Total 500 ml 400 ml Output Total 600 ml 650 ml Balance -100 ml -250 ml HEENT: Neck supple; + JVD; no LAD CVS: RRR, III/ sys murmur CHEST: basilar rales ABD: Soft, NT, + BS EXT: No c/c/ +edema Results/Medications Result Diagram: 10/29/16 0326 10/29/16 0326 Results 24 hrs Laboratory Tests Test 10/28/16 19:56 10/28/16 21:23 10/29/16 03:26 10/29/16 04:24 Activated Partial Thromboplast Time 95.1 *H 56.4 H Bedside Glucose 279 H 192 Anion Gap 16 Basophils # 0.0 Basophils % 0.1 Blood Urea Nitrogen 32 H Calcium Level 8.8 Carbon Dioxide Level 24 Chloride Level 107 Creatinine 0.91 Eosinophils # 0.0 Eosinophils % 0.0 Glucose Level 176 # Hematocrit 29.1 L Hemoglobin 10.1 L Lymphocytes # 0.5 L Lymphocytes % 3.2 L Magnesium Level 2.4 Mean Corpuscular Hemoglobin 30.0 Mean Corpuscular Hemoglobin Concent 34.9 Mean Corpuscular Volume 86.0 Mean Platelet Volume 8.5 Monocytes # 0.3 Monocytes % 2.1 Neutrophils # 14.1 H Neutrophils % 94.6 H Nucleated Red Blood Cells # 0.0 Nucleated Red Blood Cells % 0.0 Platelet Count 180 Potassium Level 4.4 Red Blood Count 3.38 L Red Cell Distribution Width 13.8 Sodium Level 143 White Blood Count 14.9 #H Test 10/29/16 07:50 10/29/16 09:33 10/29/16 11:34 Bedside Glucose 219 212 Vancomycin Level Trough 9.6 L Medications Current Medications Aspirin (Aspirin) 81 mg DAILY PO Last administered on 10/29/16 09:27; Admin Dose 81 MG; Start 10/27/16 at 09:00 Clopidogrel Bisulfate (plaVIX) 75 mg DAILY PO Last administered on 10/29/16 09 :20; Admin Dose 75 MG; Start 10/26/16 at 16:00 Digoxin (Digoxin) 0.125 mg DAILY@13 PO Last administered on 10/29/16 13:00; Admin Dose 0.125 MG; Start 10/26/16 at 16:00 Docusate Sodium (Colace) 100 mg BID PRN PO CONSTIPATION; Start 10/26/16 at 12: 00 Ferrous Sulfate (Ferrous Sulfate (Ec)) 325 mg BID PO Last administered on 09:20; Admin Dose 325 MG; Start 10/26/16 at 21:00 Metoprolol Tartrate (Lopressor) 50 mg BID PO Last administered on 10/29/16 09: 20; Admin Dose 50 MG; Start 10/26/16 at 21:00 Rivaroxaban (Xarelto) 20 mg DAILY PO ; Start 10/26/16 at 18:00; Status Future Hold Senna (Senokot) 1 tab DAILY PO Last administered on 10/29/16 09:20; Admin Dose 1 TAB; Start 10/27/16 at 09:00 Ondansetron HCl (Zofran Inj) 4 mg Q6H PRN IV NAUSEA AND/OR VOMITING; Start at 12:00 Nitroglycerin (Nitroglycerin (Sl Tab) 0.4 Mg) 1 tab Q5M PRN SL CHEST PAIN; Start 10/26/16 at 12:00 Acetaminophen (Tylenol Tab) 650 mg Q6H PRN PO PAIN LEVEL 1-3 OR FEVER Last administered on 10/29/16 16:35; Admin Dose 650 MG; Start 10/26/16 at 12:00 Acetaminophen (Tylenol Supp) 650 mg Q4H PRN [place] PAIN LEVEL 1-3 OR FEVER; Start 10/26/16 at 12:00 Morphine Sulfate (morphine) 1 mg Q4H PRN IV PAIN LEVEL 7-10; Start 10/26/16 at 12:00 Lorazepam (Ativan) 1 mg Q2H PRN IV ANXIETY Last administered on 10/28/16 23:01 ; Admin Dose 1 MG; Start 10/26/16 at 12:00 Miscellaneous Information 1 ea NOTE XX ; Start 10/26/16 at 15:30 Glucose (Glutose) 15 gm Q15M PRN PO DECREASED GLUCOSE; Start 10/26/16 at 15:30 Glucose (Glutose) 22.5 gm Q15M PRN PO DECREASED GLUCOSE; Start 10/26/16 at 15: 30 Dextrose (D50w Syringe) 25 ml Q15M PRN IV DECREASED GLUCOSE; Start 10/26/16 at 15:30 Dextrose (D50w Syringe) 50 ml Q15M PRN IV DECREASED GLUCOSE; Start 10/26/16 at 15:30 Glucagon (Glucagen) 1 mg Q15M PRN IM DECREASED GLUCOSE; Start 10/26/16 at 15:30 Glucose 15 gm 15 gm Q15M PRN BUCCAL DECREASED GLUCOSE; Start 10/26/16 at 15:30 Vancomycin HCl (Vancocin) 250 ml @ 125 mls/hr Q24H IVPB Last administered on 10:52; Admin Dose 125 MLS/HR; Start 10/27/16 at 10:00; Stop 10/29/16 at 19:00 IV Flush (NS 10 ml) 10 ml PRN PRN IV IV PROTOCOL; Start 10/26/16 at 18:00 Atorvastatin Calcium (Lipitor) 80 mg HS PO Last administered on 10/28/16 21:15 ; Admin Dose 80 MG; Start 10/27/16 at 21:00 Labetalol HCl (Labetalol) 10 mg Q4 PRN IV SBP>150 Last administered on 15:42; Admin Dose 10 MG; Start 10/26/16 at 23:30 Methylprednisolone Sodium Succinate (Solu-Medrol) 40 mg Q12 IV Last administered on 10/28/16 21:14; Admin Dose 40 MG; Start 10/27/16 at 21:00 Insulin Glargine (Lantus) 12 unit QPM SC Last administered on 10/28/16 21:32; Admin Dose 12 UNIT; Start 10/28/16 at 21:00 Insulin Human NPH (Humulin N) 8 unit Q12 SC Last administered on 10/29/16 09: 12; Admin Dose 8 UNIT; Start 10/28/16 at 11:00 Pantoprazole 40 mg 40 mg DAILY@06 PO Last administered on 10/29/16 05:51; Admin Dose 40 MG; Start 10/29/16 at 06:00 Cefepime HCl 50 ml @ 100 mls/hr Q24H IVPB ; Start 10/30/16 at 09:00 Vancomycin HCl/ Sodium Chloride (Vancocin/NS) 250 ml @ 83.333 mls/ hr Q24H IVPB ; Start 10/30/16 at 10:00 Losartan Potassium (Cozaar) 25 mg DAILY PO Last administered on 10/29/16 17:12 ; Admin Dose 25 MG; Start 10/29/16 at 17:00 Amlodipine Besylate (Norvasc) 10 mg DAILY PO ; Start 10/30/16 at 09:00 Assessment/Plan Additional Assessment/Plan IMP: 1. Respiratory Insufficiency--no significant changes on CXR 2. CHF 3. NSTEMI 4. RECS: 1. Management per cards 2. Diuresis 3. De-escalate abx ELIZABETH BLOUNT MD Oct 29, 2016 17:39
[2016-10-29] MEDS ORDERED: LORAZEPAM 2 MG INJ IV ONE (18:00)
--- NOTE | 2016-10-29 20:50 | DS ---
DATE OF ADMISSION: 10/26/2016 DATE OF DISCHARGE: 10/29/2016 CONSULTANTS: 1. Dr. Lakhwinder Chambers. 2. Dr. Raffy Hui. PROCEDURES: A 2D echocardiogram. BiPAP DIAGNOSES: 1. Acute respiratory failure, status post BiPAP. At this time, the patient is stable on nasal refugio susana. Pulmonology was consulted. Continue prednisone. 2. Non-ST myocardial infarction. Cardiology was consulted. Continue aspirin and Plavix. Status p ost heparin drip. As per patient's daughter, request no heart catheterization was done. Continue a ggressive medical management. 3. History of coronary artery disease status post quadruple bypass, as above. 4. Essential hypertension, well controlled. 5. Sepsis inflammatory response syndrome, continue cefepime. 6. Diabetes mellitus, on insulin sliding scale, Lantus and metformin. 7. Multifocal pneumonia, on cefepime and Levaquin. MEDICATIONS: 1. Tylenol. 2. DuoNeb. 3. Aspirin. 4. Lipitor. 5. Cefepime. 6. Plavix. 7. Digoxin. 8. Colace. 9. Ferrous sulfate. 10. Insulin sliding scale. 11. Lantus. 12. Atrovent. 13. Metoprolol. 14. Nitroglycerin. 15. Metformin. 16. Seroquel p.r.n. 17. Hydralazine p.r.n. 18. Prednisone. 19. Clawson. 20. Zofran 21. Protonix. 22. Levaquin. DIET: Cardiac, low carbohydrates. ACTIVITY: With desk assistant only. HOSPITAL COURSE: This is an 86-year-old female with past medical history of coronary artery disease status post quadruple bypass. Patient has had a left heart catheterization in 2016, status post PC I, hypertension, vitamin D deficiency, diabetes mellitus, GERD, dyslipidemia, chronic constipation, anemia, arrhythmia, who resides at home and has a 24-hour nurse, was found to have shortness of agueda th and was brought into the emergency room, was found to be severely hypoxic with oxygen saturation 76%, was placed on BiPAP and was admitted to the ICU, was found to have fever. Chest x-ray showed m ultifocal pneumonia. Pulmonology were consulted. As per patient's daughter's request, patient was DNR/DNI and patient was continued on BiPAP, aggressive IV antibiotics with cefepime and vancomycin. The patient was found to have elevated troponin which from 0.033 increased to 24.4. Cardiology was consulted at that time but the patient arrived to the emergency room after discussing the mode of t reatment with cardiology and discussing the left heart catheterization, the patient's daughter refus ed any interventions. The patient was continued on aggressive medical management. Regarding her pn eumonia and respiratory distress, the patient was placed on Solu-Medrol, which increased her glucose level and continued to have leukocytosis. The patient was placed on insulin sliding scale, Lantus and NPH with Solu-Medrol. Her glucose has been improving significantly. In regard to her blood pre ssure, the blood pressure is well controlled on medical management. The patient is medically stable to be discharged to nursing home facility for physical therapy and breathing treatment. Her lab s, sodium 143, potassium 4.4, chloride 107, bicarbonate 24, BUN 32, creatinine 0.91, glucose 176, ca lcium 8.8, magnesium 2.4. WBC 14.9, hemoglobin 10.1, hematocrit 29.1, platelet 180. CONDITION AT TIME OF DISCHARGE: Stable to nursing home facility. Dictated By: AXEL BEDOLLA/NTS Conf#: [id number] DID#: [id number]
[2016-10-29] MEDS: ATORVASTATIN 80 MG TAB PO SCH (20:58)
[2016-10-29] MEDS: INSULIN GLARGINE [LANtus] 3 ML PEN SC SCH (21:25)
[2016-10-30] VITALS (11 sets, daily range): BP systolic 142–153; BP diastolic 55–69; PULSE 61–94; RESP 18–20
[2016-10-30] MEDS: ALBUTEROL 0.5% (NEB) 2.5 MG/0.5 ML AMP NEB SCH ×5 (01:32→17:00)
[2016-10-30] MEDS: IPRATROPIUM (NEB) 0.5 MG/2.5 ML AMP NEB SCH ×5 (01:32→17:00)
[2016-10-30] MEDS: PANTOPRAZOLE (EC) 40 MG TAB PO SCH (05:11)
[2016-10-30 08:39] LABS: POTASSIUM 3.7 mmol/L (3.5-5.1)
[2016-10-30 08:42] LABS: CREATININE 0.88 mg/dl (0.44-1.00)
[2016-10-30 08:43] LABS: CALCIUM 8.4 mg/dl (8.4-10.2)
[2016-10-30] MEDS ORDERED: AMLODIPINE 10 MG TAB PO SCH (09:00)
[2016-10-30] MEDS ORDERED: CEFEPIME 1GM/50 ML (PMX) 50 ML IVPB SCH (09:00)
[2016-10-30] MEDS: SENNA TAB PO SCH (09:36)
[2016-10-30] MEDS: METOPROLOL 50 MG TAB PO SCH (09:36)
[2016-10-30] MEDS: METHYLPREDNISOLONE 40 MG INJ IV SCH (09:36)
[2016-10-30] MEDS: FERROUS SULFATE (EC) 325 MG TAB PO SCH (09:36)
[2016-10-30] MEDS: ASPIRIN 81 MG TAB PO SCH (09:37)
[2016-10-30] MEDS: LOSARTAN 25 MG TAB PO SCH (09:37)
[2016-10-30] MEDS: CLOPIDOGREL 75 MG TAB PO SCH (09:37)
[2016-10-30] MEDS: NPH, HUMAN INSULIN ISOPHANE 3ML VIAL SC SCH (09:45)
[2016-10-30] MEDS: INSULIN ASPART [NOVOLOG] 3 ML PEN SC SCH ×3 (09:46→18:35)
[2016-10-30] MEDS ORDERED: VANCOMYCIN 1.25 GM in SOD CHLORIDE 0.9% 250 ML IVPB SCH (10:00)
[2016-10-30] MEDS ORDERED: BISACODYL 10 MG SUPP PR ONE (12:30)
[2016-10-30] MEDS ORDERED: BISACODYL 10 MG SUPP PR PRN (12:30)
--- NOTE | 2016-10-30 12:45 | CONS ---
Date/Time of Note Date/Time of Note DATE: 10/30/16 TIME: 12:43 Consult Date/Type/Reason Admit Date/Time Oct 26, 2016 at 10:22 Initial Consult Date 10/26/16 Type of Consultation: pulm Subjective Patient stable this morning appears comfortable at rest no acute distress Objective Vital Signs Date Time Temp Pulse Resp B/P Pulse Ox O2 Delivery O2 Flow Rate FiO2 10/30/16 12:35 61 10/30/16 12:19 98.4 18 142/55 98 10/30/16 08:25 Nasal Cannula 2.0 10/30/16 05:30 45 Intake and Output 10/29/16 10/29/16 10/30/16 15:00 23:00 07:00 Intake Total 450 ml 400 ml Output Total 700 ml 4 ml Balance -250 ml 396 ml GENERAL: Elderly English lady comfortable at rest no acute distress VITAL SIGNS: per chart NECK: Supple. No JVD or lymphadenopathy. CARDIAC EXAM: S1, S2. No added sounds or murmurs. CHEST: Diminished air entry both lung bases ABDOMEN: Soft, nontender. No guarding or rebound. EXTREMITIES: No cyanosis, clubbing, trace edema NEUROLOGIC: Generalized weakness. No focal deficits. Results/Medications Result Diagram: 10/29/16 0326 10/30/16 0745 Results 24 hrs Laboratory Tests Test 10/29/16 18:29 10/29/16 21:20 10/30/16 07:45 10/30/16 07:55 Bedside Glucose 157 143 156 Anion Gap 15 Blood Urea Nitrogen 27 H Calcium Level 8.4 Carbon Dioxide Level 27 Chloride Level 107 Creatinine 0.88 Glucose Level 155 Potassium Level 3.7 Sodium Level 145 H Test 10/30/16 12:28 Bedside Glucose 217 Medications Current Medications Aspirin (Aspirin) 81 mg DAILY PO Last administered on 10/30/16 09:37; Admin Dose 81 MG; Start 10/27/16 at 09:00 Clopidogrel Bisulfate (plaVIX) 75 mg DAILY PO Last administered on 10/30/16 09 :37; Admin Dose 75 MG; Start 10/26/16 at 16:00 Digoxin (Digoxin) 0.125 mg DAILY@13 PO Last administered on 10/29/16 13:00; Admin Dose 0.125 MG; Start 10/26/16 at 16:00 Docusate Sodium (Colace) 100 mg BID PRN PO CONSTIPATION; Start 10/26/16 at 12: 00 Ferrous Sulfate (Ferrous Sulfate (Ec)) 325 mg BID PO Last administered on 09:36; Admin Dose 325 MG; Start 10/26/16 at 21:00 Metoprolol Tartrate (Lopressor) 50 mg BID PO Last administered on 10/30/16 09: 36; Admin Dose 50 MG; Start 10/26/16 at 21:00 Rivaroxaban (Xarelto) 20 mg DAILY PO ; Start 10/26/16 at 18:00; Status Future Hold Senna (Senokot) 1 tab DAILY PO Last administered on 10/30/16 09:36; Admin Dose 1 TAB; Start 10/27/16 at 09:00 Ondansetron HCl (Zofran Inj) 4 mg Q6H PRN IV NAUSEA AND/OR VOMITING; Start at 12:00 Nitroglycerin (Nitroglycerin (Sl Tab) 0.4 Mg) 1 tab Q5M PRN SL CHEST PAIN; Start 10/26/16 at 12:00 Acetaminophen (Tylenol Tab) 650 mg Q6H PRN PO PAIN LEVEL 1-3 OR FEVER Last administered on 10/29/16 16:35; Admin Dose 650 MG; Start 10/26/16 at 12:00 Acetaminophen (Tylenol Supp) 650 mg Q4H PRN OK PAIN LEVEL 1-3 OR FEVER; Start 10/26/16 at 12:00 Morphine Sulfate (morphine) 1 mg Q4H PRN IV PAIN LEVEL 7-10; Start 10/26/16 at 12:00 Lorazepam (Ativan) 1 mg Q2H PRN IV ANXIETY Last administered on 10/28/16 23:01 ; Admin Dose 1 MG; Start 10/26/16 at 12:00 Miscellaneous Information 1 ea NOTE XX ; Start 10/26/16 at 15:30 Glucose (Glutose) 15 gm Q15M PRN PO DECREASED GLUCOSE; Start 10/26/16 at 15:30 Glucose (Glutose) 22.5 gm Q15M PRN PO DECREASED GLUCOSE; Start 10/26/16 at 15: 30 Dextrose (D50w Syringe) 25 ml Q15M PRN IV DECREASED GLUCOSE; Start 10/26/16 at 15:30 Dextrose (D50w Syringe) 50 ml Q15M PRN IV DECREASED GLUCOSE; Start 10/26/16 at 15:30 Glucagon (Glucagen) 1 mg Q15M PRN IM DECREASED GLUCOSE; Start 10/26/16 at 15:30 Glucose (Glutose) 15 gm Q15M PRN BUCCAL DECREASED GLUCOSE; Start 10/26/16 at 15 :30 IV Flush (NS 10 ml) 10 ml PRN PRN IV IV PROTOCOL; Start 10/26/16 at 18:00 Atorvastatin Calcium (Lipitor) 80 mg HS PO Last administered on 10/29/16 20:58 ; Admin Dose 80 MG; Start 10/27/16 at 21:00 Labetalol HCl (Labetalol) 10 mg Q4 PRN IV SBP>150 Last administered on 15:42; Admin Dose 10 MG; Start 10/26/16 at 23:30 Methylprednisolone Sodium Succinate (Solu-Medrol) 40 mg Q12 IV Last administered on 10/30/16 09:36; Admin Dose 40 MG; Start 10/27/16 at 21:00 Insulin Glargine (Lantus) 12 unit QPM SC Last administered on 10/29/16 21:25; Admin Dose 12 UNIT; Start 10/28/16 at 21:00 Insulin Human NPH (Humulin N) 8 unit Q12 SC Last administered on 10/30/16 09: 45; Admin Dose 8 UNIT; Start 10/28/16 at 11:00 Pantoprazole 40 mg 40 mg DAILY@06 PO Last administered on 10/30/16 05:11; Admin Dose 40 MG; Start 10/29/16 at 06:00 Cefepime HCl 50 ml @ 100 mls/hr Q24H IVPB Last administered on 10/30/16 09:36 ; Admin Dose 100 MLS/HR; Start 10/30/16 at 09:00 Vancomycin HCl/ Sodium Chloride (Vancocin/NS) 250 ml @ 83.333 mls/ hr Q24H IVPB Last administered on 10/30/16 10:45; Admin Dose 83.333 MLS/HR; Start at 10:00 Amlodipine Besylate (Norvasc) 10 mg DAILY PO Last administered on 10/30/16 09: 37; Admin Dose 10 MG; Start 10/30/16 at 09:00 Losartan Potassium (Cozaar) 25 mg BID PO ; Start 10/30/16 at 21:00 Bisacodyl (Dulcolax Supp) 10 mg DAILY PRN OK CONSTIPATION; Start 10/30/16 at 12 :30 Assessment/Plan Chief Complaint/Hosp Course Additional Assessment/Plan IMP: 1. Respiratory Insufficiency--no significant changes on CXR 2. CHF 3. NSTEMI 4. RECS: 1. Management per cards 2. Diuresis 3. De-escalate abx Agree with discharge planning Follow-up with me in the office in 2-3 weeks' time. Problems: JUAN FRANCISCO CHAIREZ MD, FCCP Oct 30, 2016 12:45
[2016-10-30] MEDS: DIGOXIN 0.125 MG TAB PO SCH (13:05)
--- NOTE | 2016-10-30 13:10 | DS ---
Date/Time of Note Date/Time of Note DATE: 10/30/16 TIME: 13:05 Discharge Summary Admission/Discharge Info Admit Date/Time Oct 26, 2016 at 10:22 Discharge Date/Time 10/30/16 Final Diagnosis DC DIAGNOSES: 1. Acute respiratory failure, status post BiPAP. At this time, the patient is stable on nasal cannula. Pulmonology was consulted. Continue prednisone. 2. Non-ST myocardial infarction. Cardiology was consulted. Continue aspirin and Plavix. Status post heparin drip. As per patient's daughter, request no heart catheterization was done. Continue aggressive medical management. 3. History of coronary artery disease status post quadruple bypass, as above. 4. Essential hypertension, well controlled. 5. Sepsis inflammatory response syndrome, continue cefepime. 6. Diabetes mellitus, on insulin sliding scale, Lantus and metformin. 7. Multifocal pneumonia, on cefepime and Levaquin. Patient Condition: Stable Hospital Course HOSPITAL COURSE: This is an 86-year-old female with past medical history of coronary artery disease status post quadruple bypass. Patient has had a left heart catheterization in 2015, status post PCI, hypertension, vitamin D deficiency, diabetes mellitus, GERD, dyslipidemia, chronic constipation, anemia , arrhythmia, who resides at home and has a 24-hour nurse, was found to have shortness of breath and was brought into the emergency room, was found to be severely hypoxic with oxygen saturation 76%, was placed on BiPAP and was admitted to the ICU, was found to have fever. Chest x-ray showed multifocal pneumonia. Pulmonology were consulted. As per patient's daughter's request, patient was DNR/DNI and patient was continued on BiPAP, aggressive IV antibiotics with cefepime and vancomycin. The patient was found to have elevated troponin which from 0.033 increased to 24.4. Cardiology was consulted at that time but the patient arrived to the emergency room after discussing the mode of treatment with cardiology and discussing the left heart catheterization , the patient's daughter refused any interventions. The patient was continued on aggressive medical management. Regarding her pneumonia and respiratory distress, the patient was placed on Solu-Medrol, which increased her glucose level and continued to have leukocytosis. The patient was placed on insulin sliding scale, Lantus and NPH with Solu-Medrol. Her glucose has been improving significantly. In regard to her blood pressure, the blood pressure is well controlled on medical management. The patient is medically stable [facility] and breathing treatment. Her labs, sodium 143, potassium 4.4, chloride 107, bicarbonate 24, BUN 32, creatinine 0.91, glucose 176, calcium 8.8, magnesium 2.4. WBC 14.9, hemoglobin 10.1, hematocrit 29.1, platelet 180. On 06/29/2017 patient discharge was held secondary to patient had episodes of hypertension and amlodipine and Cozaar were added to patient's blood pressure medication. Patient also had an episode of respiratory distress which was placed on facemask which has been transitioned to nasal cannula on 2 L which she has been tolerating. This morning patient blood pressure is stable and she has not had any episodes of breathing difficulty After discussing the disposition with patient's daughter at this time patient daughter has requested the patient to be transferred to [facility] nursing [facility] and patient will be set up for transfer this evening Condition at the time of discharge stable Home Meds Active Scripts Losartan Potassium* (Losartan Potassium*) 25 Mg Tablet, 25 MG PO DAILY for 30 Days, TAB Prov:JOSE MONTERROSO M. 10/29/16 Amlodipine Besylate* (Amlodipine Besylate*) 10 Mg Tablet, 10 MG PO DAILY, #30 TAB Prov:JOSE MONTERROSO M. 10/29/16 Reported Medications Ergocalciferol (Vitamin D2) (VITAMIN D2) 50,000 Unit Capsule, 94187 UNIT PO WEEKLY, CAP 10/26/16 Metoprolol Tartrate* (Lopressor*) 50 Mg Tab, 50 MG PO BID, #60 TAB 10/26/16 Sennosides* (Senna Lax*) 8.6 Mg Tablet, 1 TAB PO DAILY, TAB 10/26/16 Digoxin* (Digox*) 125 Mcg Tablet, 0.125 MG PO DAILY, TAB 10/26/16 Memantine* (Namenda* XR) 28 Mg Cap.spr.24, 28 MG PO DAILY, #30 TAB 10/26/16 Icosapent Ethyl (VASCEPA) 1 Gm Capsule, 1 GM PO BID, CAP 10/26/16 Acetaminophen* (Acephen*) 650 Mg Supp, 650 MG KS DAILY Y for PAIN AND OR ELEVATED TEMP, SUPP 10/26/16 Clopidogrel Bisulfate (Clopidogrel) 75 Mg Tablet, 75 MG PO DAILY, #30 TAB 10/26/16 Aspirin* (Aspirin* Chew) 81 Mg Tab.chew, 81 MG PO DAILY, TAB.CHEW 10/26/16 Ferrous Sulfate* (Ferrous Sulfate*) 325 Mg Tabec, 325 MG PO BID 08/30/13 Pantoprazole* (Pantoprazole*) 40 Mg Tablet. 11/16/11 Discontinued Reported Medications Glimepiride* (Glimepiride*) 4 Mg Tablet, 4 MG PO BID WITH MEALS, TAB 10/26/16 Docusate Sodium* (Colace*) 250 Mg Capsule, 250 MG PO BID, #60 CAP 10/26/16 Metformin* (Glucophage*) 500 Mg Tab, 500 MG PO DAILY, #30 TAB 10/26/16 Colchicine* (Colcrys*) 0.6 Mg Tablet, 0.6 MG PO BID, TAB 10/26/16 Pantoprazole* (Pantoprazole*) 40 Mg Tablet.dr, 40 MG PO DAILY, TAB 10/26/16 Amlodipine Besylate* (Norvasc*) 5 Mg Tablet, 5 MG PO DAILY, TAB 10/26/16 Colchicine* (Colcrys*) 0.6 Mg Tablet, 0.6 MG PO DAILY 08/30/13 Azilsartan-Chlorthalidone (Edarbyclor) 1 Each Tablet, 1 EACH PO DAILY 08/30/13 Metformin* (Glucophage*) 500 Mg Tab, 500 MG PO BID 08/30/13 Rivaroxaban* (Xarelto*) 20 Mg Tablet, 20 MG PO DAILY 08/30/13 [sulfametho] No Conflict Check, 160 MG PO BID 08/30/13 [vit d] No Conflict Check, 29932 UNIT each week 08/30/13 Glimepiride* (Glimepiride*) 4 Mg Tablet, 4 MG PO BID 08/30/13 Simvastatin (Simvastatin) 40 Mg Tablet, PO 02/20/13 Metoprolol (Lopressor) 50 Mg Tablet, bid, 0 Refills 02/20/13 Digoxin (Lanoxin) 0.25 Mg/5 Ml Solution, PO 02/20/13 [gas reliever] No Conflict Check 11/16/11 [colcrys] No Conflict Check 11/16/11 Aspirin (Adult Aspirin) 81 Mg Tab.chew 11/16/11 Simvastatin (Simvastatin) 40 Mg Tablet 11/16/11 [acetanminophen ext] No Conflict Check 11/16/11 [id number] (Exforge HCT) 1 Each Tablet 11/16/11 Pending Labs Laboratory Tests Test 10/29/16 18:29 10/29/16 21:20 10/30/16 07:45 10/30/16 07:55 Bedside Glucose 157mg/dL (70-220) 143mg/dL (70-220) 156mg/dL (70-220) Anion Gap 15 (8-16) Blood Urea Nitrogen 27mg/dl (7-20) Calcium Level 8.4mg/dl (8.4-10.2) Carbon Dioxide Level 27mmol/L (21-31) Chloride Level 107mmol/L (97-110) Creatinine 0.88mg/dl (0.44-1.00) Glucose Level 155mg/dl (70-220) Potassium Level 3.7mmol/L (3.5-5.1) Sodium Level 145mmol/L (135-144) Test 10/30/16 12:28 Bedside Glucose 217mg/dL (70-220) AXEL CHERRY MD Oct 30, 2016 13:10
[2016-10-30] MEDS ORDERED: LOSARTAN 25 MG TAB PO SCH (21:00)
== END 2016-10-30 20:10 | DRG 871 ==
LOC: E/R 07:57 → MERGE 07:57 → ICU 10:22 → UNDOADMIN 15:55 → ICU 15:55 → TEL 10-27 14:57
PROVIDERS: ADMIT Family Medicine; ATTEND Family Medicine
PROC: 02HV33Z Insertion of Infusion Device into Superior Vena Cava, Percutaneous Approach (ICD-10-PCS; principal; 2016-10-26)
PROC: 5A09457 Assistance with Respiratory Ventilation, 24-96 Consecutive Hours, Continuous Positive Airway Pressure (ICD-10-PCS; 2016-10-26)
DX: A41.9 Sepsis, unspecified organism (principal); I21.4 Non-ST elevation (NSTEMI) myocardial infarction; J96.01 Acute respiratory failure with hypoxia; I50.33 Acute on chronic diastolic (congestive) heart failure; J69.0 Pneumonitis due to inhalation of food and vomit; I10 Essential (primary) hypertension; R65.20 Severe sepsis without septic shock; Z95.1 Presence of aortocoronary bypass graft; Z95.5 Presence of coronary angioplasty implant and graft; E11.65 Type 2 diabetes mellitus with hyperglycemia; Z66 Do not resuscitate; I35.0 Nonrheumatic aortic (valve) stenosis; Z79.02 Long term (current) use of antithrombotics/antiplatelets
CPT/HCPCS: 36569; 36600; 71010; 76937; 80048; 80053; 80061; 80076; 80202; 81001; 81003; 82550; 82553; 82803; 82962; 83605; 83735; 83880; 84436; 84479; 84484; 85025; 85610; 85730; 86850; 86900; 86901; 87040; 87081; 87086; 87400; 93005; 93306; 94640; 94644; 94660; 94664; 96374; 96375; J1940; C9113; J0692; J1644; J1815; J2060; J2543; J2920; J2930; J3370; J7030; J7050